=== PATIENT | female | born 1945 | race Caucasian/White ===

== ENCOUNTER → 2016-11-25 | Outpatient (CLI) | payer OTHER ==
[~2016-11-25] MED LIST: CHOL100027 PO; DORZ1SOL6 OP; FLAXSEED OIL; MULT-506 PO; OMEG10007 PO; RED YEAST RICE; TRAVATAN Z EYE GTTS OP; [UNRECOGNIZED DRUG - OTHER]
[2016-11-25 13:29] LABS: ALT/SGPT 27 U/L (12-78); AST/SGOT 15 U/L (15-37); BLOOD UREA NITROGEN 22 mg/dl (7-18); BUN/CREATININE RATIO 26.6 (10-20); CALCIUM 8.7 mg/dl (8.5-10.1); CARBON DIOXIDE 26 mmol/L (21-32); CHLORIDE 106 mmol/L (98-107); CREATININE 0.84 mg/dl (0.60-1.20); GLUCOSE 96 mg/dl (70-99); HDL CHOLESTEROL 56 mg/dl; POTASSIUM 4.3 mmol/L (3.5-5.1); SODIUM 140 mmol/L (136-145)
[2016-11-25 13:41] LABS: ALKALINE PHOSPHATASE 68 U/L (45-117); CHOLESTEROL 307 mg/dl (0-200); CHOLESTEROL/HDL RATIO 5.5; LDL CHOLESTEROL CALCULATED 192 mg/dl; TRIGLYCERIDES 297 mg/dl (0-150); VERY LOW DENSITY LIPOPROT CALC 59 mg/dl
== END | disposition home or self-care (01) ==
LOC: C.LABBC 10:02
PROVIDERS: ATTEND Internal Medicine
DX: I10 Essential (primary) hypertension (principal)

== ENCOUNTER → 2016-12-03 | Outpatient (CLI) | payer OTHER ==
[2016-12-03 13:56] LABS: CHOLESTEROL/HDL RATIO 5.4
== END | disposition home or self-care (01) ==
LOC: C.LABBC 11:14
PROVIDERS: ATTEND Internal Medicine
DX: E78.5 Hyperlipidemia, unspecified (principal)

== ENCOUNTER → 2017-04-16 | Outpatient (CLI) | payer OTHER ==
[2017-04-16 11:02] LABS: ALT/SGPT 24 U/L (12-78); AST/SGOT 14 U/L (15-37); BLOOD UREA NITROGEN 14 mg/dl (7-18); BUN/CREATININE RATIO 18.7 (10-20); CARBON DIOXIDE 23 mmol/L (21-32); CHLORIDE 111 mmol/L (98-107); CHOLESTEROL 232 mg/dl (0-200); CHOLESTEROL/HDL RATIO 5.4; CREATININE 0.77 mg/dl (0.60-1.20); GLUCOSE 95 mg/dl (70-99); HDL CHOLESTEROL 43 mg/dl; LDL CHOLESTEROL CALCULATED 144 mg/dl; SODIUM 142 mmol/L (136-145); TRIGLYCERIDES 225 mg/dl (0-150); VERY LOW DENSITY LIPOPROT CALC 45 mg/dl
[2017-04-16 11:04] LABS: ALB/GLOB RATIO 0.9 (0.9-2); ALKALINE PHOSPHATASE 58 U/L (45-117)
[2017-04-16 12:17] LABS: CALCIUM 8.8 mg/dl (8.5-10.1)
== END | disposition home or self-care (01) ==
LOC: C.LABBC 08:48
PROVIDERS: ATTEND Physician Assistant Medical
DX: E78.5 Hyperlipidemia, unspecified (principal)

== ENCOUNTER → 2017-04-21 | Outpatient (CLI) | payer OTHER ==
--- NOTE | 2017-04-21 14:10 | DIAGNOSTIC IMAGING REPORT ---
CT SCAN OF THE ABDOMEN AND PELVIS WITHOUT IV CONTRAST CLINICAL HISTORY: Right upper quadrant abdominal pain. Bloating. COMPARISON STUDY: Abdominal CT dated 02/15/2006. TECHNIQUE: CT scan of the abdomen and pelvis is performed from the lung bases to the proximal femora. Images are reviewed in the axial, sagittal, and coronal planes. IV contrast was not administered for this examination as per the referring clinician. Oral contrast was utilized. Automated dose control exposure was utilized. CT DOSE: 399.61 mGy.cm FINDINGS: Lung bases: The heart is normal in size and without pericardial effusion. A 5 mm left lower lobe pulmonary nodule on image #10 is new from 2005. The lung bases are otherwise clear. There is a tiny hiatal hernia. Liver: The unenhanced liver is normal in size, contour, and attenuation. There is no intrahepatic biliary ductal dilatation. Gallbladder: Unremarkable. Spleen: Normal in size and attenuation. Pancreas: Unremarkable. Adrenal glands: Unremarkable. Kidneys: The unenhanced kidneys demonstrate cortical atrophy and are without hydronephrosis. There are no renal calculi identified. There is no evidence of contour deforming renal mass lesion. Abdominal vasculature: The abdominal aorta is normal in course and caliber noting mild atherosclerotic calcification. Bowel: The small bowel and colon are normal in course and caliber. There is advanced diverticulosis of the left colon without CT evidence of acute diverticulitis. The appendix is well-visualized and normal. Peritoneum: There is no intraperitoneal free air or abdominal ascites. Lymphadenopathy: None. Pelvic viscera: The bladder is normal as visualized. The uterus is surgically absent. No adnexal lesion is seen. Skeletal structures: The skeletal structures are osteopenic. Lumbosacral spondylosis is observed. There is evidence of L5-S1 spinal fusion. No lytic or blastic lesions are seen. IMPRESSION: 1. There are no acute infectious or inflammatory findings in the abdomen or pelvis. 2. Advanced diverticulosis of the left colon without CT evidence of acute diverticulitis. 3. There is a 5 mm left lower lobe pulmonary nodule. This is pathologically indeterminant but new from 02/15/2006. Follow-up with a nonemergent chest CT is recommended for full assessment of the thorax. 4. Additional findings as above. Electronically signed by: Ethan Foster M.D. 04/21/2017 2:08 PM Dictated Date/Time: 04/21/2017 2:03 PM
== END | disposition home or self-care (01) ==
LOC: C.CTS 11:52
PROVIDERS: ATTEND Internal Medicine
DX: R10.11 Right upper quadrant pain (principal); K57.30 Diverticulosis of large intestine without perforation or abscess without bleeding; R91.1 Solitary pulmonary nodule

== ENCOUNTER → 2017-04-26 | Outpatient (CLI) | payer OTHER ==
--- NOTE | 2017-04-26 14:50 | DIAGNOSTIC IMAGING REPORT ---
CT SCAN OF THE CHEST WITHOUT IV CONTRAST CLINICAL HISTORY: Pulmonary nodule. COMPARISON STUDY: Chest x-ray dated 07/09/2015. Abdominal CT scans dated 04/21/2017 and 02/15/2006. TECHNIQUE: CT scan of the thorax was performed from the thoracic inlet to the upper abdomen. Images are reviewed in the axial, sagittal, and coronal planes. IV contrast was not administered for this examination. CT DOSE: 282.25 mGycm FINDINGS: Thyroid: Imaged portions of the thyroid gland are normal in size and attenuation. Thoracic aorta: There is mild atherosclerotic calcification of the thoracic aorta, which is normal in caliber and demonstrates standard 3-vessel arch anatomy. Heart: The heart is normal in size and without pericardial effusion. There are coronary artery calcifications. The pulmonary trunk is normal in caliber. Lungs and pleural spaces: There is no airspace consolidation or pleural effusion. Biapical scarring is observed. The trachea and central airways are clear. There are 2 pleural-based nodules in the left lower lobe. A 6 cm nodule is seen on image #176 and a 5 mm nodule is seen on image #227. There is a 3 L pleural-based nodule in the right lower lobe seen on image #138. Mediastinum: There is no mediastinal lymphadenopathy. Roma: Not well assessed without IV contrast. Axillae: There is no axillary lymphadenopathy. Upper abdomen: Partially visualized upper abdominal viscera is within normal limits. Skeletal structures: The skeletal structures are osteopenic. No lytic or blastic bony lesions are seen. IMPRESSION: 1. There is no airspace consolidation or pleural effusion. 2. There are 3 pleural-based nodules identified measuring up to 6 mm. These are pathologically indeterminant and follow-up is recommended seen. See below. 3. No mediastinal lymphadenopathy is seen. Please refer to below summary of Fleischner criteria recommendations for follow-up of incidental CT nodules (Tricia Bellamy, Guidelines for management of small pulmonary nodules detected on CT scans: A statement from the Fleischner Society, Radiology 237: [phone].) SOLID NODULES Solitary nodule size: <6 mm * low risk patients: no follow-up needed * high risk patients: optional CT at 12 months Solitary nodule size: 6-8 mm * low risk patients: follow-up at 6-12 months, then consider further follow-up at 18-24 months * high risk patients: initial follow-up CT at 6-12 months and then at 18-24 months if no change Solitary nodule size: >8 mm * either low or high risk patients - consider follow-up CT at 3 months, and/or CT-PET, and/or biopsy Multiple nodules size: <6 mm * low risk patients: no routine follow-up * high risk patients: optional CT at 12 months Multiple nodules size: 6-8 mm * low risk patients: follow-up at 3-6 months, then consider further follow-up at 18-24 months * high risk patients: follow-up at 3-6 months, then at 18-24 months if no change Multiple nodules size: >8 mm * low risk patients: follow-up at 3-6 months, then consider further follow-up at 18-24 months * high risk patients: follow-up at 3-6 months, then at 18-24 months if no change Note: newly detected indeterminate nodule in persons 35 years of age or older. * low risk patients: minimal or absent history of smoking and/or other known risk factors * high risk patients: history of smoking or of other known risk factors (e.g. first degree relative with lung cancer, or exposure to asbestos, radon, uranium) * if a nodule up to 8 mm is partly solid or is ground glass further follow-up is required after 24 months to exclude possible slow growing adenocarcinoma (GRETEL) SUBSOLID NODULES Solitary pure ground-glass nodule * nodule size <6 mm - no CT follow-up required * nodule size >=6 mm - follow-up CT at 6-12 months, then every 2 years until 5 years Solitary part-solid nodule * nodule size <6 mm - no CT follow-up required * nodule size >=6 mm - follow-up CT at 3-6 months. If unchanged, and solid component remains <6 mm, then annual follow-up for 5 years Multiple subsolid nodules * nodule size <6 mm - follow-up CT at 3-6 months, consider further follow-up at 2 and 4 years if stable * nodule size >=6 mm - follow-up CT at 3-6 months, subsequent management based on the most suspicious nodule(s) Electronically signed by: Ethan Foster M.D. 04/26/2017 2:48 PM Dictated Date/Time: 04/26/2017 2:37 PM
== END | disposition home or self-care (01) ==
LOC: C.CTS 14:15
PROVIDERS: ATTEND Internal Medicine
DX: R91.1 Solitary pulmonary nodule (principal); I70.0 Atherosclerosis of aorta

== ENCOUNTER → 2017-05-31 | Outpatient (CLI) | payer OTHER | END | disposition home or self-care (01) | LOC: C.PAPS 14:51 | PROVIDERS: ATTEND Obstetrics & Gynecology | DX: Z01.419 Encounter for gynecological examination (general) (routine) without abnormal findings (principal) ==

== ENCOUNTER → 2017-06-24 | Outpatient (CLI) | payer OTHER ==
--- NOTE | 2017-06-24 13:58 | MAMMOGRAPHY REPORT ---
BILATERAL DIGITAL SCREENING MAMMOGRAM WITH CAD: 06/24/2017 CLINICAL HISTORY: Routine screening. Patient has no complaints. TECHNIQUE: Current study was also evaluated with a Computer Aided Detection (CAD) system. Bilateral CC and MLO views were obtained. COMPARISON: Comparison is made to exams dated: 06/23/2016 mammogram, 06/21/2015 mammogram, 06/20/2014 m ammogram, 06/19/2013 mammogram, 06/17/2012 mammogram, and 06/16/2011 mammogram - [facility] enter. BREAST COMPOSITION: The tissue of both breasts is almost entirely fatty. FINDINGS: No suspicious masses, calcifications, or areas of architectural distortion are noted in ei ther breast. There has been no significant interval change compared to prior exams. Scattered bilater al benign-appearing calcifications are not significantly changed. Benign-appearing mass in the left 3:00 breast is stable dating back to the 2007 exam. IMPRESSION: ACR BI-RADS CATEGORY 2: BENIGN There is no mammographic evidence of malignancy. A 1 year screening mammogram is recommended. The pa tient will receive written notification of the results. Approximately 10% of breast cancers are not detected with mammography. A negative mammographic report should not delay biopsy if a clinically suggestive mass is present. Chanelle Casey M.D. ah/:06/24/2017 12:34:00 Investment Banking Manager: Camila SORIA(Earline)(M), [facility] letter sent: Normal 1/2 BI-RADS Code: ACR BI-RADS Category 2: Benign
== END | disposition home or self-care (01) ==
LOC: C.MAMM 10:53
PROVIDERS: ATTEND Internal Medicine
DX: Z12.31 Encounter for screening mammogram for malignant neoplasm of breast (principal)

== ENCOUNTER → 2017-07-29 | Outpatient (CLI) | payer OTHER ==
--- NOTE | 2017-07-29 10:02 | DIAGNOSTIC IMAGING REPORT ---
(CHEST) THORAX WITHOUT CLINICAL HISTORY: 71 years-old Female presenting with R91.8, lung nodules. TECHNIQUE: Multidetector CT imaging of the chest was performed without the use of intravenous contrast. IV contrast: None. A dose lowering technique was used consistent with the principles of ALARA (as low as reasonably achievable). COMPARISON: 04/26/2017. CT DOSE (mGy.cm): The estimated cumulative dose is 228.11 mGycm. FINDINGS: Resident Care Coordinator topogram: Unremarkable. On soft tissue windows, normal thyroid and thoracic inlet. No axillary, supraclavicular, hilar, or mediastinal lymphadenopathy. Atherosclerosis of aortic arch. Normal heart size. Coronary artery calcification. No pericardial or pleural effusion. Upper abdomen normal. On lung windows, no interval growth of the 2 solid subpleural nodules in the left lower lobe, which measure 4 mm (series 4 images 167 and 226). Subpleural solid nodule in the right lower lobe is triangular in configuration and size measures 3 mm, unchanged (series 4 image 123). Mild mosaic attenuation could suggest small airways disease. Focal linear opacity peripherally in the lingula, likely scarring, unchanged. Minimal scarring also suspected near the anterior left lower lobe. Biapical scarring again noted. No new nodule or infiltrate. Airways patent. On bone windows, normal osseous structures. IMPRESSION: 1. No interval growth of the multiple solid pulmonary nodules, measuring up to 4 mm. Follow-up per [place]isa Society 2017 recommendations below. 2. No acute intrathoracic pathology. Please refer to below summary of Fleischner Society 2017 recommendations for follow-up of incidental CT nodules (H Mia et al. Guidelines for management of incidental pulmonary nodules detected on CT images: From the Fleischner Society 2017. Radiology 2017; 284: 228-243.) SOLID NODULES Single nodule; size < 6 mm * Low risk patients: No routine follow-up * High risk patients: Optional CT at 12 months Single nodule; size 6-8 mm * Low risk patients: CT at 6-12 months, then consider CT at 18-24 months * High risk patients: CT at 6-12 months, then at 18-24 months Single nodule; size > 8 mm * Either low or high risk patients: Considered CT at 3 months, PET/CT, or tissue sampling Multiple nodules; size < 6 mm * Low risk patients: No routine follow up * High risk patients: Optional CT at 12 months Multiple nodules; size 6-8 mm * Low risk patients: CT at 3-6 months, then consider CT at 18-24 months * High risk patients: CT at 3-6 months, then at 18-24 months Multiple nodules; size > 8 mm * Low risk patients: CT at 3-6 months, then consider at 18-24 months * High risk patients: CT at 3-6 months, then at 18-24 months Note: These guidelines apply to incidental nodules. These guidelines do not apply to patients younger than 35 years, immunocompromised patients, or patients with cancer. * Low risk patients: Minimal or absent history of smoking and/or other known risk factors * High risk patients: History of smoking, exposure to other carcinogens, emphysema, fibrosis, upper lobe location, family history of lung cancer, etc. * If a nodule up to 8 mm is partly solid or is ground glass, further follow-up is required after 24 months to exclude possible slow growing adenocarcinoma. SUBSOLID NODULES Single ground-glass nodule * Nodule size < 6 mm: No routine follow-up * Nodule size > or = 6 mm: CT at 6-12 months to confirm persistence, then CT every 2 years until 5 years Single part-solid nodule * Nodule size < 6 mm: No routine follow-up * Nodules size > or = 6 mm: CT at 3-6 months to confirm persistence. If unchanged and solid component remains < 6 mm, annual CT should be performed for 5 years Multiple nodules * Nodule size < 6 mm: CT at 3-6 months. If stable, consider CT at 2 and 4 years. * Nodules size > or = 6 mm: CT at 3-6 months. Subsequent management based on the most suspicious nodule(s) Electronically signed by: Jose Mcginnis M.D. 07/29/2017 10:01 AM Dictated Date/Time: 07/29/2017 9:55 AM
== END | disposition home or self-care (01) ==
LOC: C.CTS 09:32
PROVIDERS: ATTEND Internal Medicine
DX: R91.8 Other nonspecific abnormal finding of lung field (principal)

== ENCOUNTER → 2017-12-06 | Outpatient (CLI) | payer OTHER ==
[2017-12-06 14:32] LABS: ALBUMIN 3.3 gm/dl (3.4-5.0); ALT/SGPT 25 U/L (12-78); AST/SGOT 17 U/L (15-37); BLOOD UREA NITROGEN 17 mg/dl (7-18); CALCIUM 8.5 mg/dl (8.5-10.1); CARBON DIOXIDE 24 mmol/L (21-32); CREATININE 0.78 mg/dl (0.60-1.20); GLUCOSE 88 mg/dl (70-99); POTASSIUM 4.2 mmol/L (3.5-5.1); SODIUM 139 mmol/L (136-145)
[2017-12-06 14:34] LABS: ALKALINE PHOSPHATASE 74 U/L (45-117); CHOLESTEROL 222 mg/dl (0-200); LDL CHOLESTEROL CALCULATED 126 mg/dl
== END | disposition home or self-care (01) ==
LOC: C.LABBC 09:51
PROVIDERS: ATTEND Internal Medicine
DX: E78.5 Hyperlipidemia, unspecified (principal)

== ENCOUNTER → 2018-06-06 | Outpatient (CLI) | payer OTHER ==
[2018-06-06 12:53] LABS: BASO % 0.6 %; BASO ABS # 0.04 K/uL (0-0.2); EOS % 2.6 %; EOS ABS # 0.19 K/uL (0-0.5); HEMATOCRIT 40.7 % (37-47); HEMOGLOBIN 14.2 g/dL (12.0-16.0); IG# 0.01 K/uL (0.00-0.02); LYMPH % 38.2 %; LYMPH ABS # 2.75 K/uL (1.2-3.4); MEAN CELL VOLUME 97.4 fL (80-100); MEAN CORPUSCULAR HGB CONC 34.9 g/dl (32-36); MONO % 7.5 %; MONO ABS # 0.54 K/uL (0.11-0.59); NEUT ABS # 3.67 K/uL (1.4-6.5); PLATELET COUNT 268 K/uL (130-400); RED CELL DISTRIBUTION WIDTH SD 46.1 fL (36.4-46.3)
[2018-06-06 13:44] LABS: ALBUMIN 3.6 gm/dl (3.4-5.0); ALKALINE PHOSPHATASE 67 U/L (45-117); ALT/SGPT 28 U/L (12-78); AST/SGOT 15 U/L (15-37); BLOOD UREA NITROGEN 17 mg/dl (7-18); CALCIUM 8.9 mg/dl (8.5-10.1); CARBON DIOXIDE 23 mmol/L (21-32); CHOLESTEROL 265 mg/dl (0-200); CREATININE 0.84 mg/dl (0.60-1.20); GLUCOSE 89 mg/dl (70-99); LDL CHOLESTEROL CALCULATED 149 mg/dl; POTASSIUM 4.1 mmol/L (3.5-5.1); SODIUM 139 mmol/L (136-145); TOTAL PROTEIN 7.3 gm/dl (6.4-8.2)
== END | disposition home or self-care (01) ==
LOC: C.LABBC 09:34
PROVIDERS: ATTEND Internal Medicine
DX: E78.5 Hyperlipidemia, unspecified (principal); K21.9 Gastro-esophageal reflux disease without esophagitis; I10 Essential (primary) hypertension; M99.83 Other biomechanical lesions of lumbar region; G51.4 Facial myokymia

== ENCOUNTER → 2018-06-14 | Outpatient (CLI) | payer OTHER ==
--- NOTE | 2018-06-14 10:22 | DIAGNOSTIC IMAGING REPORT ---
(CHEST) THORAX WITHOUT CLINICAL HISTORY: 72 years-old Female presenting with R91.8 Multiple pulmonary nodules. TECHNIQUE: Multidetector CT imaging of the chest was performed without the use of intravenous contrast. IV contrast: None. A dose lowering technique was used consistent with the principles of ALARA (as low as reasonably achievable). COMPARISON: 07/29/2017. CT DOSE (mGy.cm): The estimated cumulative dose is 352.30 mGycm. FINDINGS: Cigar Packer And Shader topogram: Unremarkable. On soft tissue windows, normal thyroid and thoracic inlet. No axillary, supraclavicular, or mediastinal lymphadenopathy. Evaluation of the jose limited without intravenous contrast. Atherosclerosis of the aorta. Normal heart size. Coronary artery calcification. No pericardial or pleural effusion. Upper abdomen normal. On lung windows, unchanged solid subpleural lower lobe nodules on the right measuring 3 mm (series 4 image 126) and on the left measuring 4 mm and 3 mm (series 4 images 172 and 232, respectively). Solid peripheral 3 mm right middle lobe nodule (series 4 image 198), unchanged. Punctate solid peripheral right lower lobe nodule (series 4 image 190), unchanged. Punctate solid left apical nodule (series 4 image 49), unchanged. Airways patent. No pneumothorax. On bone windows, normal osseous structures. IMPRESSION: 1. Solid pulmonary nodules measuring up to 4 mm, which have been stable dating back to April 2017. No new pulmonary nodule. These do not require further follow-up and are consistent with benign etiology per Adalgisa Society 2017 criteria below. Please refer to below summary of Fleischner Society 2017 recommendations for follow-up of incidental CT nodules (H Mia et al. Guidelines for management of incidental pulmonary nodules detected on CT images: From the Fleischner Society 2017. Radiology 2017; 284: 228-243.) SOLID NODULES Single nodule; size < 6 mm * Low risk patients: No routine follow-up * High risk patients: Optional CT at 12 months Single nodule; size 6-8 mm * Low risk patients: CT at 6-12 months, then consider CT at 18-24 months * High risk patients: CT at 6-12 months, then at 18-24 months Single nodule; size > 8 mm * Either low or high risk patients: Considered CT at 3 months, PET/CT, or tissue sampling Multiple nodules; size < 6 mm * Low risk patients: No routine follow up * High risk patients: Optional CT at 12 months Multiple nodules; size 6-8 mm * Low risk patients: CT at 3-6 months, then consider CT at 18-24 months * High risk patients: CT at 3-6 months, then at 18-24 months Multiple nodules; size > 8 mm * Low risk patients: CT at 3-6 months, then consider at 18-24 months * High risk patients: CT at 3-6 months, then at 18-24 months SUBSOLID NODULES Single ground-glass nodule * Nodule size < 6 mm: No routine follow-up * Nodule size > or = 6 mm: CT at 6-12 months to confirm persistence, then CT every 2 years until 5 years Single part-solid nodule * Nodule size < 6 mm: No routine follow-up * Nodules size > or = 6 mm: CT at 3-6 months to confirm persistence. If unchanged and solid component remains < 6 mm, annual CT should be performed for 5 years Multiple nodules * Nodule size < 6 mm: CT at 3-6 months. If stable, consider CT at 2 and 4 years. * Nodules size > or = 6 mm: CT at 3-6 months. Subsequent management based on the most suspicious nodule(s) NOTE: 1) These guidelines apply to incidental nodules. These guidelines do NOT apply to patients younger than 35 years, immunocompromised patients, or patients with cancer. 2) Risk categories: * Low risk patients: Minimal or absent history of smoking and/or other known risk factors * High risk patients: History of smoking, exposure to other carcinogens, emphysema, fibrosis, upper lobe location, family history of lung cancer, etc. 3) If a nodule up to 8 mm is partly solid or is ground glass, further follow-up is required after 24 months to exclude possible slow growing adenocarcinoma. Electronically signed by: Jose Mcginnis M.D. 06/14/2018 10:21 AM Dictated Date/Time: 06/14/2018 10:05 AM
== END | disposition home or self-care (01) ==
LOC: C.CTS 09:50
PROVIDERS: ATTEND Internal Medicine
DX: R91.8 Other nonspecific abnormal finding of lung field (principal)

== ENCOUNTER → 2018-06-14 | Outpatient (CLI) | payer OTHER | END | disposition home or self-care (01) | LOC: C.PAPS 15:13 | PROVIDERS: ATTEND Obstetrics & Gynecology | DX: Z01.419 Encounter for gynecological examination (general) (routine) without abnormal findings (principal) ==

== ENCOUNTER 2018-06-25 15:53 | Emergency (ER) | payer OTHER ==
[~2018-06-25] VITALS: Ht 160 cm; Wt 71.7 kg
[2018-06-25 15:56] VITALS: BP 168/70; PULSE 76; TEMP 36.7; O2SAT 96; Ht 160 cm; Wt 71.7 kg
[2018-06-25] MEDS ORDERED: CEPH500C PO (16:33)
--- NOTE | 2018-06-25 17:33 | EMERGENCY ROOM VISIT NOTE ---
History First contact with patient: 16:00 (Syed Hancock,P.A.) First contact with patient: 16:00 (Alex Swann M.D.) Chief Complaint: BITE Stated Complaint: SPIDER BITE ON RIGHT ANKLE History of Present Illness The patient is a 72 year old white female who presents to the Emergency Room with complaints of a possible spider bite on the inside portion of her right ankle. Patient states she was sitting on the deck on Wednesday evening. She denies feeling anything bite her. She developed some itching of the ankle later that evening. She awoke Wednesday with a reddened area and 2 visible puncture tse within the center. There was some itching but no significant pain. She was seen by her PCP who recommended she just observe it. A white central area has developed. She noticed some redness around the initial bite katelin. No fevers or chills. No streaking. He she is not on any antibiotics. She has been keeping it clean with soap and water and keeping it covered. No prior history of similar lesion. Her accompanied her today. No other complaints. (Syed Hancock,P.A.) Review of Systems REVIEW OF SYSTEM: HEENT: No dizziness, visual problems, hearing loss, or tinnitus. There is no difficulty swallowing and no oral lesions are present. PULMONARY: No cough, shortness of breath, sputum production or hemoptysis. CARDIOVASCULAR: No chest pain, palpitations, shortness of breath or peripheral edema. GASTROINTESTINAL: No diarrhea, constipation, nausea, vomiting, or abdominal pain. GENITOURINARY: No dysuria, frequency, urgency or nocturia. NEUROLOGIC: No weakness, muscle tenderness, epilepsy or history of neurological problems. MUSCULOSKELETAL: No history of joint tenderness/swelling. Positive history of arthritis and arthralgias. SKIN: No rashes or lesions. PSYCHIATRIC: No history of depression or mental illness. ENDOCRINE: No history of diabetes, thyroid disorders, or abnormal hair growth. (Syed Hancock,P.A.) Past Medical/Surgical History Medical history: Significant for history of back pain and lung nodules Previous surgeries: Back surgery. (Syed Hancock,P.A.) Family History Noncontributory. Parents are . (Syed Hancock,P.A.) Social History Smoking Status: Never Smoker Smokeless Tobacco Use: No Alcohol Use: occasionally Drug Use: none Marital Status: Housing Status: lives with family Occupation Status: retired (Syed Hancock,P.A.) Current/Historical Medications Scheduled Cephalexin Monohydrate (Keflex), 500 MG PO TID Cholecalciferol (Vitamin D 1000 Unit), 2,000 INTER.UNIT PO DAILY Dorzolamide Hcl-Timolol Maleat (Cosopt Oph), 1 DROP OP QAM Multivitamin (Multivitamin), 1 TAB PO DAILY [Flaxseed Oil], DAILY [Red Yeast Rice], DAILY [Travatan Z Eye Gtts], 1 DROP OP QPM Miscellaneous Medications Fish Oil (Rinard-3), 1 CAP PO [Clamera Patch] Physical Exam Vital Signs Date Time Temp Pulse Resp B/P (MAP) Pulse Ox O2 Delivery O2 Flow Rate FiO2 06/25/18 15:56 36.7 76 18 168/70 96 Room Air (Alex Swann M.D.) Physical Exam General: Well-developed, well-nourished, elderly white female, sitting on a bed. Alert and oriented. No acute distress. Skin: Warm and dry with good turgor. No rashes. No ecchymosis. She has a pustule type lesion present on the inner aspect of the right ankle, just inferior and anterior to the medial malleolus. Reddened areas approximately 1.5 cm in diameter. Central pustule is approximately 6-7 mm in diameter. Mild induration. No streaking. Nothing is expressible. The patient is not diaphoretic. No abrasions. Musculoskeletal: Gross motor function is intact to the right ankle and toes. Neurologic: Gross sensation is intact across the foot and ankle by soft touch. Peripheral pulses are 2+. (Syed Hancock,P.A.) Medical Decision & Procedures Procedure Patient's lesion was cleansed twice with alcohol. An 18-gauge needle was used to unroofed pustule. A small amount of purulent material was removed. No foreign body was noted. Postural does not appear to be deep. (Syed Hancock,P.A.) ED Course Patient and her were educated regarding today's findings discussed. Pustule was ruptured as stated. Cleanse it daily with soap and water. Continue using her triple antibiotic ointment until fully healed. Prescription was provided for Keflex 500 mg 3 times daily 5 days. Apply warm moist compresses to the area to promote drainage and healing. Start ibuprofen 200 mg every 6-8 hours until inflammation resolves. Follow-up with her PCP or return to the ED for any acute worsening of symptoms. (Syed Hancock,P.A.) Medical Decision Possibility of insect bite, spider bite, retained foreign body, and skin abscess were considered among others. (Syed Hancock,P.A.) [place] Drug Monitoring Program Search Results: no issues identified (Syed Hancock,P.A.) Medication Reconcilliation Current Medication List: was personally reviewed by me (Syed Hancock,P.A.) Blood Pressure Screening Blood pressure disposition: Elevated BP felt to be situational (Syed Hancock,P.A.) Impression Primary Impression: Insect bite of ankle, right Departure Information Dispostion Home / Self-Care Prescriptions Cephalexin Monohydrate (Keflex) 500 Mg Cap 500 MG PO TID, #15 CAP Prov: Syed Hancock,P.A. 06/25/18 Forms HOME CARE DOCUMENTATION FORM, IMPORTANT VISIT INFORMATION Patient Instructions My [facility] Additional Instructions Keep the area clean with soap and water Cover daily with a thin coat of antibiotic ointment and a Band-Aid Keflex 1 pill 3 times a day 5 days Ibuprofen 200 mg every 6-8 hours until inflammation resolves Elevate the foot to reduce any swelling Return to the ED or see your PCP for any increasing redness or streaking Problem Qualifiers Primary Impression: Insect bite of ankle, right Encounter type: initial encounter Qualified Codes: S90.561A - Insect bite ( nonvenomous), right ankle, initial encounter; W57.XXXA - Bitten or stung by nonvenomous insect and other nonvenomous arthropods, initial encounter
== END 2018-06-25 16:42 | disposition home or self-care (01) ==
LOC: C.EDB 15:54 → C.EDD 16:42
DX: S90.561A Insect bite (nonvenomous), right ankle, initial encounter (principal); W57.XXXA Bitten or stung by nonvenomous insect and other nonvenomous arthropods, initial encounter

== ENCOUNTER 2021-05-12 08:10 | Inpatient (IN) ==
--- NOTE | 2021-04-24 10:24 | PAT Medication Instructions ---
Medication Instructions Date of Service April 24, 2021 Home Medications cholecalciferol (vitamin D3) 50 mcg (2,000 unit) capsule 2,000 units PO BID cranberry extract 500 mg tablet 500 mg PO QAM estradiol 0.05 mg/24 hr weekly transdermal patch 1 patch TD WEEKLY omega-3 fatty acids 1,200 mg PO QAM spironolactone 25 mg-hydrochlorothiazide 25 mg tablet 1 tab PO DAILY PRN coenzyme Q10 [CoQ-10] 100 mg PO HS flaxseed oil 1,000 mg PO HS lorazepam 0.5 mg PO DAILY PRN omeprazole 40 mg PO QAM polyethylene glycol 3350 [Miralax] 17 g PO HS ramipril 10 mg PO QAM vitamin E 1 dose PO HS Continue as directed estradiol 0.05 mg/24 hr weekly transdermal patch 1 patch TD WEEKLY (continue as normal unless told otherwise by surgeon. Avoid placement near surgery site prior to surgery) STOP taking 2 weeks before surgery (or as soon as possible if surgery is within 2 weeks) cranberry extract 500 mg tablet 500 mg PO QAM omega-3 fatty acids 1,200 mg PO QAM coenzyme Q10 [CoQ-10] 100 mg PO HS flaxseed oil 1,000 mg PO HS vitamin E 1 dose PO HS DO NOT take the morning of surgery cholecalciferol (vitamin D3) 50 mcg (2,000 unit) capsule 2,000 units PO BID spironolactone 25 mg-hydrochlorothiazide 25 mg tablet 1 tab PO DAILY PRN ramipril 10 mg PO QAM Take morning of surgery With a small sip of water, OTHERWISE NOTHING TO EAT OR DRINK AFTER MIDNIGHT: lorazepam 0.5 mg PO DAILY PRN (if needed) omeprazole 40 mg PO QAM Take evening before surgery cholecalciferol (vitamin D3) 50 mcg (2,000 unit) capsule 2,000 units PO BID spironolactone 25 mg-hydrochlorothiazide 25 mg tablet 1 tab PO DAILY PRN (if needed) lorazepam 0.5 mg PO DAILY PRN (if needed) polyethylene glycol 3350 [Miralax] 17 g PO HS Other Notes If you have any questions please call us at [phone] or [phone] or [phone] or [phone]
--- NOTE | 2021-04-28 11:01 | Anesthesiology Consultation ---
Date of Service April 28, 2021 Assessment & Plan (1) Encounter for pre-operative examination: COVID screening: Per assessment on 04/28: Travel screen negative, no known COVID- 19 positive contacts or current COVID-19 related symptoms. Surgeon arranging preop COVID testing. Awaiting results. Chart Review Chart Review: Acceptable Risk for Surgery (pending surgeon-ordered PCP clearance) and Patient seen in Pre Admission Testing Teaching & Discussion Pre-Anesthesia Teaching/Discussion Notes: Instructed NPO after midnight before surgery,except medications with 15 cc of water. Medication instructions provided according to the PAT guidelines. History Surgery Operation Date: 05/12/21 07:45 Proposed Procedures p L3-L5 Decompression/Fusion Spinal Cord Monitoring - Kevin Cardona DO s L5-S1 Hardware Removal - Kevin Cardona DO Height/Weight Height: 5 ft 3.5 in Weight: 65.3 kg Allergies Allergy/AdvReac Type Severity Reaction Status Date / Time adhesive Allergy Intermediate Redness Verified 04/28/21 11:14 niacin Allergy Intermediate Redness Verified 04/28/21 11:14 doxycycline Allergy Rash Verified 04/22/21 16:33 red yeast rice Allergy Unknown Verified 04/22/21 16:53 ezetimibe [From Zetia] AdvReac Intermediate Muscle Pain Verified 04/28/21 11:14 fenofibrate [From Tricor] AdvReac Unknown Muscle Pain Verified 04/28/21 11:14 atorvastatin AdvReac Muscle Pain Verified 04/28/21 11:14 choline fenofibrate AdvReac Muscle Pain Verified 04/28/21 11:14 [From Trilipix] gemfibrozil [From Lopid] AdvReac Muscle Pain Verified 04/28/21 11:14 pitavastatin [From Livalo] AdvReac Muscle Pain Verified 04/28/21 11:14 pravastatin [From Pravachol] AdvReac Muscle Pain Verified 04/28/21 11:14 rosuvastatin [From Crestor] AdvReac Muscle Pain Verified 04/28/21 11:14 simvastatin AdvReac Muscle Pain Verified 04/28/21 11:14 Medications Home Medications Medication Instructions Recorded Confirmed Last Taken cholecalciferol (vitamin D3) 50 2,000 units PO BID cap 06/01/19 04/22/21 Unknown mcg (2,000 unit) capsule cranberry extract 500 mg tablet 500 mg PO QAM tab 06/01/19 04/22/21 Unknown estradiol 0.05 mg/24 hr weekly 1 patch TD WEEKLY ea 06/01/19 04/22/21 Unknown transdermal patch omega-3 fatty acids 1,200 mg PO QAM cap 06/01/19 04/22/21 Unknown spironolactone 25 1 tab PO DAILY PRN tab 06/09/19 04/22/21 Unknown mg-hydrochlorothiazide 25 mg tablet coenzyme Q10 [CoQ-10] 100 mg PO HS 04/22/21 04/22/21 Unknown flaxseed oil 1,000 mg PO HS 04/22/21 04/22/21 Unknown lorazepam 0.5 mg PO DAILY PRN 04/22/21 04/22/21 Unknown omeprazole 40 mg PO QAM 04/22/21 04/22/21 Unknown polyethylene glycol 3350 [Miralax] 17 g PO HS 04/22/21 04/22/21 Unknown ramipril 10 mg PO QAM 04/22/21 04/22/21 Unknown vitamin E 1 dose PO HS 04/22/21 04/22/21 Unknown Past Medical History Medical History Diverticular disease GERD (gastroesophageal reflux disease) controlled Hearing deficit B/L PATHAK HLD (hyperlipidemia) HTN (hypertension) IBS (irritable bowel syndrome) Osteoarthritis Exercise / Class Metabolic Activity II 4-5 Yardwork/Stairs/Walk up hill Past Family History Family History Father Acute myocardial infarction Mother Coronary heart disease Sister Diabetes Coronary heart disease Hyperlipidemia Hypertension Unknown Diabetes Hypertension Other No family history of adverse response to anesthesia Denies family history of Ovarian cancer Prostate cancer Myocardial infarction Breast cancer Colorectal cancer Past Surgical History Surgical History History of back surgery History of breast surgery History of cataract surgery History of colonoscopy History of dilation of urethra History of non-cataract eye surgery History of total abdominal hysterectomy and bilateral salpingo-oophorectomy Past Anesthesia History No Hx of Anesthesia Complications and No Family Hx of Anesthesia Complications History of PONV No Hx of PONV and Hx of Motion Sickness (+ boats) Social History Smoking Status: Current every day smoker tobacco type: cigarettes Smoking cigarettes per day: 10 cigarettes (tobacco use x 40 years) Do You Dip or Chew Tobacco: No Hx Alcohol Use: Yes Alcohol type: hard liquor alcohol intake frequency: a few times a week Hx Substance Use: No substance use type: does not use Review of Systems Patient denies chest pain, shortness of breath, dyspnea on exertion, fever, chills, cough, wheezing, palpitations. Physical Exam Vital Signs VITALS BP 107/67 P 60 TEMP 98.4 SP02 97%RA RESP 16 PHYSICAL Full cervical extension range of motion. Full TMJ range of motion. TMD 3 finger breaths Mallampati Score 2 Dentition: intact, + crowns Lungs: clear throughout to auscultation Cardiac: regular rate and rhythm, no murmurs noted Spine: normal Carotid arteries: negative bruit Extremities: no edema Lab Results Anesthesia Preop Results Results Anesthesia Widget: WBC 6.54 K/uL (4.8-10.8) 04/28/21 Hgb 13.2 g/dL (12.0-16.0) 04/28/21 Hct 38.9 % (37-47) 04/28/21 Plt 303 K/uL (130-400) 04/28/21 Na 139 mmol/L (136-145) 04/28/21 K 4.4 mmol/L (3.5-5.1) 04/28/21 Cl 106 mmol/L (98-107) 04/28/21 CO2 29 mmol/L (21-32) 04/28/21 BUN 14 mg/dl (7-18) 04/28/21 Creat 0.77 mg/dl (0.6-1.2) 04/28/21 Glucose Level 84 mg/dl (70-99) 04/28/21 PT 9.7 Seconds (9.0-12.0) 04/28/21 PTT 24.7 Seconds (21.0-31.0) 04/28/21 INR 1.0 (0.9-1.1) 04/28/21 Urine Color Yellow 04/28/21 Urine Appearance Clear (Clear) 04/28/21 Urine pH 7.0 (4.5-7.5) 04/28/21 Urine Specific [place] 1.006 (1.000-1.030) 04/28/21 Urine Protein Negative (Negative) 04/28/21 Urine Glucose (UA) Negative (Negative) 04/28/21 Urine Ketones Negative (Negative) 04/28/21 Urine Blood Negative (Negative) 04/28/21 Urine Nitrite Negative (Negative) 04/28/21 Urine Bilirubin Negative (Negative) 04/28/21 Urine Urobilinogen Negative (Negative) 04/28/21 Urine Leukocyte Esterase Negative (Negative) 04/28/21 Blood Type B Positive 04/28/21 Antibody Screen NEGATIVE 04/28/21 Testing Electrocardiogram Date: 04/28/21 SB at 58bpm. unconfirmed report. Chest X-Ray Date: 04/28/21 FINDINGS: The heart is normal in size. There is no failure. There is no focal pulmonary consolidation. There are no pleural effusions. There is a chronic right apical opacity likely related to the right anterior first rib. There is a stable curvilinear opacity at the right cardiophrenic angle likely representing a vessel. IMPRESSION: No active disease in the chest. Echocardiogram Date: 12/05/15 EF 55 to 60%. No regional wall motion abnormalities. Mild MR. RVSP 19 mmHg. Stress Test Date: 11/21/19 Type: exercise Negative exercise stress echo/ECG for ischemia at 88% MPHR. No exercise-induced chest pain. 80% max predicted heart rate. 7.8 METS. Mild MR. Mild aortic sclerosis. Trace to mild AI. Mild TR.
[~2021-05-12 08:10] MED LIST changes: +ACETAMINOPHEN 500 MG TAB PO SCH; -CHOL100027 PO; +CLINDAMYCIN 600 MG/54 ML BAG IV SCH; +CeleBREX 200 MG CAP PO SCH; -DORZ1SOL6 OP; -FLAXSEED OIL; +GABAPENTIN 300 MG CAP PO SCH; +LR 15ML/HR IV SCH; -MULT-506 PO; -OMEG10007 PO; -RED YEAST RICE; -TRAVATAN Z EYE GTTS OP; -[UNRECOGNIZED DRUG - OTHER]; +ceFAZolin 1000MG 1,000 MG/7.5 ML SYR IV SCH
[2021-05-12] MEDS ORDERED: PROMETHAZINE HCL 6.25 MG in SODIUM CHLORIDE 0.9% 50 ML IV PRN (08:36)
[2021-05-12] MEDS ORDERED: LABETALOL HCL IV 5 MG/ML 20ML IV PRN (08:36)
[2021-05-12] MEDS ORDERED: ONDANSETRON INJ 2 MG/ML 2 ML VIAL IV PRN ×2 (08:36→13:22)
[2021-05-12] MEDS ORDERED: HYDROmorphone INJ 1 MG/ML SYRINGE IV PRN ×2 (08:36→13:22)
[2021-05-12] MEDS ORDERED: ATROPINE SULFATE 0.1 MG/ML 10ML SYR IV PRN (08:36)
[2021-05-12] MEDS ORDERED: fentaNYL citrate 100 MCG/2 ML VIAL ONE (08:54)
[2021-05-12] MEDS ORDERED: MIDAZOLAM HCL 1 MG/ML 2ML VIAL ONE (08:54)
[2021-05-12] MEDS ORDERED: HYDROmorphone INJ 2 MG/ML SYR/VIAL ONE (08:55)
--- NOTE | 2021-05-12 09:00 | History & Physical Bridge Note ---
Date of Service May 12, 2021 History & Physical Bridge Note I have examined the patient, reviewed the History & Physical and in the interval since the performance of the History & Physical I have noted the following changes of clinical significance: no changes noted
--- NOTE | 2021-05-12 09:02 | History & Physical Report ---
Date of Service May 12, 2021 Assessment & Plan (1) Neurogenic claudication due to lumbar spinal stenosis: Admission and Anticipated Discharge Date Admission Date: L3-L5 decompression fusion, L5-S1 hardware removal History of Present Illness Chief Complaint: Back and leg pain Primary Care Provider: Jose Spivey MD This is a 75-year-old female well-known to me the presents with chronic system back and leg pain. Failing course of nonoperative care is here for surgical invention. Allergies Allergy/AdvReac Type Severity Reaction Status Date / Time adhesive Allergy Intermediate Redness Verified 05/12/21 08:40 niacin Allergy Intermediate Redness Verified 05/12/21 08:40 doxycycline Allergy Rash Verified 05/12/21 08:40 red yeast rice Allergy Unknown Verified 05/12/21 08:40 ezetimibe [From Zetia] AdvReac Intermediate Muscle Pain Verified 05/12/21 08:40 fenofibrate [From Tricor] AdvReac Unknown Muscle Pain Verified 05/12/21 08:40 atorvastatin AdvReac Muscle Pain Verified 05/12/21 08:40 choline fenofibrate AdvReac Muscle Pain Verified 05/12/21 08:40 [From Trilipix] gemfibrozil [From Lopid] AdvReac Muscle Pain Verified 05/12/21 08:40 pitavastatin [From Livalo] AdvReac Muscle Pain Verified 05/12/21 08:40 pravastatin [From Pravachol] AdvReac Muscle Pain Verified 05/12/21 08:40 rosuvastatin [From Crestor] AdvReac Muscle Pain Verified 05/12/21 08:40 simvastatin AdvReac Muscle Pain Verified 05/12/21 08:40 Home Medications Medication Instructions Recorded Confirmed Type cholecalciferol (vitamin D3) 50 2,000 units PO BID cap 06/01/19 05/12/21 History mcg (2,000 unit) capsule cranberry extract 500 mg tablet 500 mg PO QAM tab 06/01/19 05/12/21 History estradiol 0.05 mg/24 hr weekly 1 patch TD WEEKLY ea 06/01/19 05/12/21 History transdermal patch omega-3 fatty acids 1,200 mg PO QAM cap 06/01/19 05/12/21 History spironolactone 25 1 tab PO DAILY PRN tab 06/09/19 05/12/21 History mg-hydrochlorothiazide 25 mg tablet coenzyme Q10 [CoQ-10] 100 mg PO HS 04/22/21 05/12/21 History flaxseed oil 1,000 mg PO HS 04/22/21 05/12/21 History lorazepam 0.5 mg PO DAILY PRN 04/22/21 05/12/21 History omeprazole 40 mg PO QAM 04/22/21 05/12/21 History polyethylene glycol 3350 [Miralax] 17 g PO HS 04/22/21 05/12/21 History ramipril 10 mg PO QAM 04/22/21 05/12/21 History vitamin E 1 dose PO HS 04/22/21 05/12/21 History Past Med/Surg History Medical History Diverticular disease GERD (gastroesophageal reflux disease) controlled Hearing deficit B/L PATHAK HLD (hyperlipidemia) HTN (hypertension) IBS (irritable bowel syndrome) Osteoarthritis Surgical History History of back surgery History of breast surgery History of cataract surgery History of colonoscopy History of dilation of urethra History of non-cataract eye surgery History of total abdominal hysterectomy and bilateral salpingo-oophorectomy Family History Father Acute myocardial infarction Mother Coronary heart disease Sister Diabetes Coronary heart disease Hyperlipidemia Hypertension Unknown Diabetes Hypertension Other No family history of adverse response to anesthesia Denies family history of Ovarian cancer Prostate cancer Myocardial infarction Breast cancer Colorectal cancer Social History Smoking Status: Current every day smoker Tobacco Type: Cigarettes Cigarettes Per Day: 10 cigarettes (tobacco use x 40 years); Second Hand Exposure: Yes ( smokes); Do You Dip or Chew Tobacco: No; Tobacco Cessation Education Requested by Patient: No Hx Alcohol Use: Yes Alcohol type: hard liquor Alcohol Intake Frequency: Monthly or Less Alcohol Intake Frequency Comment: social drinks Hx Substance Use: No Preferred Language: Icelandic Communication Ability: Effective Visual Impairment: Limited Hearing Ability: Use of Hearing Aid Oven Press Tender Required: No Beliefs That Will Affect Care: None marital status: Current Living Situation: Spouse current occupational status: retired How many Children do You have: 1 How many Children do You have Comment: adopted Feels Safe at Home: Yes Safety Concerns: Feels Safe At This Time Childhood Exposure to Second-Hand Smoke: No caffeine: Yes (drinks soda ) Dental Care, Regularly: Yes Physical Activity Frequency: Daily Physical Activity Frequency Comment: walks her dog daily Seatbelt Use: always Sunscreen Use: Yes Assistive Devices: Hearing Aid - Bilateral Physical Exam Physical Exam: Patient is alert and oriented Heart regular in rhythm Lungs clear to auscultation Results & Data ([facility]) Vital Signs (Past 12 Hours) Vital Signs Temp Pulse Resp BP Pulse Ox 05/12/21 08:31 36.6 C 62 20 157/69 H 98
[2021-05-12] MEDS ORDERED: BUPIVACAINE/EPINEPHRINE 0.5% MPF 1:200,000 30 ML VIAL ONE (09:19)
[2021-05-12] MEDS ORDERED: PROPOFOL IV EMULSION 10 MG/ML 20 ML VIAL IV ONE (09:25)
[2021-05-12] MEDS ORDERED: LIDOCAINE 2% 2 ML VIAL/AMP(20MG/ML) INFIL ONE (09:25)
[2021-05-12] MEDS ORDERED: GLYCOPYRROLATE 0.2 MG/ML VIAL ONE (09:25)
[2021-05-12] MEDS ORDERED: NEOSTIGMINE METHYLSULFATE 1 MG/ML 10ML VIAL ONE (09:25)
[2021-05-12] MEDS ORDERED: DEXAMETHASONE SOD INJ 4 MG/ML VIAL ONE (09:25)
[2021-05-12] MEDS ORDERED: ROCURONIUM BROMIDE 10 MG/ML 5 ML VIAL IV ONE (09:25)
[2021-05-12] MEDS ORDERED: ONDANSETRON INJ 2 MG/ML 2 ML VIAL ONE (09:25)
[2021-05-12] MEDS ORDERED: FLOSEAL HEMOSTATIC MATRIX 10ML TOP ONE (10:24)
--- NOTE | 2021-05-12 11:31 | Operative Report ---
Post Operative Report Pre & Post Diagnosis Operation Date: 05/12/21 09:35 Pre-Op Diagnosis: Lumbar spinal stenosis with neurogenic claudication spondylolisthesis L4-L5 Post-Op Diagnosis: Same I identified the patient and participated in the time-out.: Yes Procedure Operation Date: 05/12/21 09:35 Actual Procedures #1 removal of instrumentation L5-S1. #2 exploration of fusion L5-S1. #3 lumbar decompression with bilateral medial facetectomies and foraminotomies L3-4 and L4-5 per #4 posterior spinal fusion L4-5. #5 placement of posterior instrumentation L4-5. #6 interbody fusion L4-5. #7 placement of peek cage 9 x 22 mm at L4-5 per #8 placement locally harvested morselized autograft in the posterior gutters. 9 placement infuse collagen sponge and master graft in the posterior lateral gutters and I factor in the interbody space. Surgeon Kevin Cardona, Gluer Machine Setup Operator Jann Jefferson Estimated Blood Loss 100 Findings Consistent with Post-Op Diagnosis Specimens None Indications This is a 75-year-old female known to me the presents above-mentioned diagnosis after failing since course of nonoperative care is here for the above-mentioned procedure. Description of Procedure Patient was met with identified informed consent obtained. Patient was then taken to the operative suite underwent a patient placed in a prone position injectable top Maicol frame. All bony prominences well-padded eyes inspected to ensure no external pressure placed upon the. This point lumbar spine was prepped and draped in a sterile fashion. Sharp dissection with the assistance of Bovie cautery from down to and exposing the lamina and transverse processes of L4 and instrumentation at L5 and S1 levels bilaterally. Then proceeded to move the hardware bilaterally explore the fusion mass noting it to be intact. Then performed a complete laminectomy of L4 partial laminectomy L3 including bilateral medial facetectomies and foraminotomies addressing severe spinal stenosis. Pedicle screws were then placed in L4 and L5 bilaterally with assistance of fluoroscopy and by way of a transforaminal portion right complete discectomy was performed endplates curetted to subcortical bleeding bone and a 9 x 22 mm peek cage filled with I factor tapped in position. The rods were then locked in final position bilaterally. The transverse processes of L4 and L5 burred to subcortical bleeding bone. Infuse collagen sponge master graft and local autograft was placed in the posterior gutters. 15 round SUAD drain inserted. The incision was then closed with 1 Vicryl fascia 2-0 Vicryl subcutaneously and 4 Monocryl for final skin closure. Steri-Strip sterile dressings placed. Patient will continue PACU stable condition. Please note spinal cord monitoring was utilized at the procedure no changes noted. Lastly Jann Jefferson was present at the entire procedure about the patient posi tioning complex portions of the surgery and final skin closure. I attest to the content of the Intraoperative Record and any orders documented therein. Any exceptions are noted below.
--- NOTE | 2021-05-12 11:35 | Fluoroscopy Report ---
[place] lumbar spine 2-3V CLINICAL HISTORY: L3-L5 DECOMPRESSION/FUSION COMPARISON STUDY: MRI performed August 2012 FLUOROSCOPY TIME: 18 seconds. NUMBER OF FLUOROSCOPIC IMAGES: 2 FINDINGS: Due to a limited [id number], accurate numbering is not possible. There are postsurgical changes of consecutive level discectomies and interbody fusions. At the more superior level, there is evidence of posterior spinal fusion with pedicle screw fixation. The more superior level there is a grade 1 spondylolisthesis. IMPRESSION: Postsurgical changes as described above. As stated above accurate level numbering is not possible due to the limited [id number]. ACT 112: Negative or not required by law. Electronically signed by: Levi Banks M.D. 05/12/2021 11:34 AM
--- NOTE | 2021-05-12 12:30 | Anesthesiology Progress Note ---
Date of Service May 12, 2021 Anesthesia Post Procedure Vital Signs Vital Signs: Temp Pulse Pulse Resp BP BP Pulse Ox 05/12/21 12:20 54 L 14 119/58 L 94 05/12/21 12:10 64 14 116/95 99 05/12/21 12:00 74 12 127/62 99 05/12/21 11:54 36.1 C L 78 16 132/59 L 99 05/12/21 08:31 36.6 C 62 20 157/69 H 98 Transfer of Care Handoff Completed per policy Notes Mental Status: alert / awake / arousable Patient Amnestic to Procedure: Yes Nausea / Vomiting: adequately controlled Pain: adequately controlled Airway Patency, RR, SpO2: stable & adequate BP & HR: stable & adequate Hydration State: stable & adequate Anesthetic Complications: no major complications apparent
[2021-05-12] MEDS ORDERED: DO NOT ADMINISTER FLU VACCINE PRN (13:22)
[2021-05-12] MEDS ORDERED: MAGNESIUM HYDROXIDE SUSP 30 ML UDC PO PRN (13:22)
[2021-05-12] MEDS ORDERED: ONDANSETRON 4 MG OD TAB PO PRN (13:22)
[2021-05-12] MEDS ORDERED: traMADol HCL 50 MG TABLET PO PRN (13:22)
[2021-05-12] MEDS ORDERED: HYDROCODONE/ACETAMOPHEN 5/325MG TAB PO PRN (13:22)
[2021-05-12] MEDS ORDERED: hydrOXYzine HCl 25 MG TAB PO PRN (13:22)
[2021-05-12] MEDS ORDERED: PROMETHAZINE HCL 12.5 MG in SODIUM CHLORIDE 0.9% 50 ML IV PRN (13:22)
[2021-05-12] MEDS ORDERED: LORazepam 0.5 MG TAB PO PRN (13:22)
[2021-05-12] MEDS ORDERED: DO NOT ADMINISTER PNEUMOCOCCAL VACCINE PRN (13:22)
[2021-05-12] MEDS ORDERED: ALUMINUM/MAGNESIUM SUSP 30 ML UDC PO PRN (13:22)
[2021-05-12] MEDS ORDERED: diphenhydrAMINE Capsule 25 MG CAP PO PRN (13:22)
[2021-05-12] MEDS ORDERED: NALOXONE HCL 0.4 MG/1 ML VIAL/CARP IV PRN (13:22)
[2021-05-12] MEDS ORDERED: LORazepam 0.5 MG/1 ML VIAL IV PRN (13:22)
[2021-05-12] MEDS ORDERED: HYDROmorphone INJ 0.5 MG/0.5 ML SYR IV PRN (13:22)
[2021-05-12] MEDS ORDERED: FAMOTIDINE 20 MG TAB PO PRN (13:22)
[2021-05-12] MEDS ORDERED: METOCLOPRAMIDE HCL INJ 5 MG/ML 2 ML VIAL IV PRN (13:22)
[2021-05-12] MEDS ORDERED: SPIRONOLACTONE/HCTZ 25-25 PO PRN (13:22)
[2021-05-12] MEDS ORDERED: SOD PHOSPHATE/SOD BIPHOSPHATE ENEMA 132 ML BTL PR PRN (13:22)
[2021-05-12] MEDS: LACTATED RINGER'S 1,000 ML IV SCH (14:40)
[2021-05-12] MEDS: ACETAMINOPHEN 1,000 MG/100 ML VIAL IV PRN (17:01)
[2021-05-12] MEDS: CLINDAMYCIN 600 MG in DEXTROSE 5% 50 ML IV SCH (17:32)
--- NOTE | 2021-05-12 18:54 | Consultation ---
Date of Consultation May 12, 2021 Assessment & Plan (1) Neurogenic claudication due to lumbar spinal stenosis: s/p #1 removal of instrumentation L5-S1. #2 exploration of fusion L5-S1. #3 lumbar decompression with bilateral medial facetectomies and foraminotomies L3-4 and L4-5 #4 posterior spinal fusion L4-5. #5 placement of posterior instrumentation L4-5. #6 interbody fusion L4-5. #7 placement of peek cage 9 x 22 mm at L4-5 per #8 placement locally harvested morselized autograft in the posterior gutters. #9 placement infuse collagen sponge and master graft in the posterior lateral gutters and I factor in the interbody space Defer pain management, disposition to primary ortho team. Labs in am. (2) Myalgia: b/l thigh pain reported by patient post-op. if this persists consider dopplers r/o DVT. I do not think it is neuropathic - the thighs would correspond to nerve levels L2 and L3 - these leona were not operated on during today's procedure. (3) Gastroesophageal reflux disease without esophagitis: Cont daily PPI (4) Glaucoma: (5) Hyperlipidemia: (6) Hypertension: hold LAURA inhibitor for now. if creatinine tomorrow is stable and if BPs are high then resume the LAURA. (7) Tobacco use disorder: intake counselor to quit. decline nicoderm patch. (8) DVT prophylaxis: SCDs chemical means contraindicated. Thank you for this consult - we will follow with you. History of Present Illness Requesting Physician: Cameron Cardona DO Reason for Consultation: post-op medical management Attending Physician: Kevin Cardona DO History of Present Illness 75yo female with history of HTN, hyperlipidemia, prior lumbar back surgery, glaucoma, and GERD who presented today for elective lumbar back surgery due to lumbar DJD with resulting neurogenic claudication and painful radiculopathy. I saw her post-op on the surgical floor and she reported no chest pain, dyspnea, abd pain, nausea, emesis or uncontrolled back pain. She tolerated her dinner meal without issue. Allergies Allergy/AdvReac Type Severity Reaction Status Date / Time adhesive Allergy Intermediate Redness Verified 05/12/21 08:40 doxycycline Allergy Intermediate Rash Verified 05/12/21 12:42 niacin Allergy Intermediate Redness Verified 05/12/21 08:40 red yeast rice Allergy Unknown Unknown Verified 05/12/21 12:42 ezetimibe [From Zetia] AdvReac Intermediate Muscle Pain Verified 05/12/21 08:40 atorvastatin AdvReac Mild Muscle Pain Verified 05/12/21 12:42 choline fenofibrate AdvReac Mild Muscle Pain Verified 05/12/21 12:42 [From Trilipix] fenofibrate [From Tricor] AdvReac Mild Muscle Pain Verified 05/12/21 12:42 gemfibrozil [From Lopid] AdvReac Mild Muscle Pain Verified 05/12/21 12:42 pitavastatin [From Livalo] AdvReac Mild Muscle Pain Verified 05/12/21 12:42 pravastatin [From Pravachol] AdvReac Mild Muscle Pain Verified 05/12/21 12:42 rosuvastatin [From Crestor] AdvReac Mild Muscle Pain Verified 05/12/21 12:42 simvastatin AdvReac Mild Muscle Pain Verified 05/12/21 12:42 Home Medications Medication Instructions Recorded Confirmed Type cholecalciferol (vitamin D3) 50 2,000 units PO BID cap 06/01/19 05/12/21 History mcg (2,000 unit) capsule cranberry extract 500 mg tablet 500 mg PO QAM tab 06/01/19 05/12/21 History estradiol 0.05 mg/24 hr weekly 1 patch TD WEEKLY ea 06/01/19 05/12/21 History transdermal patch omega-3 fatty acids 1,200 mg PO QAM cap 06/01/19 05/12/21 History spironolactone 25 1 tab PO DAILY PRN tab 06/09/19 05/12/21 History mg-hydrochlorothiazide 25 mg tablet coenzyme Q10 [CoQ-10] 100 mg PO HS 04/22/21 05/12/21 History flaxseed oil 1,000 mg PO HS 04/22/21 05/12/21 History lorazepam 0.5 mg PO DAILY PRN 04/22/21 05/12/21 History omeprazole 40 mg PO QAM 04/22/21 05/12/21 History polyethylene glycol 3350 [Miralax] 17 g PO HS 04/22/21 05/12/21 History ramipril 10 mg PO QAM 04/22/21 05/12/21 History vitamin E 1 dose PO HS 04/22/21 05/12/21 History Patient History Medical History Diverticular disease GERD (gastroesophageal reflux disease) controlled Hearing deficit B/L PATHAK HLD (hyperlipidemia) HTN (hypertension) IBS (irritable bowel syndrome) Osteoarthritis Surgical History History of back surgery History of breast surgery History of cataract surgery History of colonoscopy History of dilation of urethra History of non-cataract eye surgery History of total abdominal hysterectomy and bilateral salpingo-oophorectomy Family History Father , age 78 Acute myocardial infarction Stroke Pacemaker Mother , age 94 Coronary heart disease Sister Diabetes Coronary heart disease Hyperlipidemia Hypertension Unknown Diabetes Hypertension Other No family history of adverse response to anesthesia Denies family history of Ovarian cancer Prostate cancer Myocardial infarction Breast cancer Colorectal cancer Social History (Updated 05/12/21 @ 23:03 by Gasper Del Real) Smoking Status: Current every day smoker Tobacco Type: Cigarettes Cigarettes Per Day: 10 cigarettes (tobacco use x 40 years); Second Hand Exposure: Yes ( smokes); Do You Dip or Chew Tobacco: No; Tobacco Cessation Education Requested by Patient: No Hx Alcohol Use: Yes Alcohol type: hard liquor Alcohol Intake Frequency: Monthly or Less Alcohol Intake Frequency Comment: social drinks Hx Substance Use: No Preferred Language: [place] Communication Ability: Effective Visual Impairment: Limited Hearing Ability: Use of Hearing Aid Estate Planning Paralegal Required: No Beliefs That Will Affect Care: None marital status: Current Living Situation: Spouse Current Living Situation Comment: [place] with current occupational status: retired current occupation: worked in [employer] at [employer] How many Children do You have: 5 How many Children do You have Comment: 1 adopted; 4 step-children. No biological children. Feels Safe at Home: Yes Safety Concerns: Feels Safe At This Time Childhood Exposure to Second-Hand Smoke: No caffeine: Yes (drinks soda ) Dental Care, Regularly: Yes Physical Activity Frequency: Daily Physical Activity Frequency Comment: walks her dog daily Seatbelt Use: always Sunscreen Use: Yes Assistive Devices: Walker Review of Systems Constitutional: no fever, no chills, no fatigue, no anorexia and no weight loss Eyes: no worsening vision Ear, Nose, Mouth, Throat: no dysphagia Respiratory: no cough, no dyspnea and no dyspnea on exertion Cardiovascular: no chest pain Gastrointestinal: no abdominal pain, no nausea, no vomiting and no diarrhea/loose stools Genitourinary: no difficulty urinating Musculoskeletal: + back pain Integumentary: no rash Neurologic: + numbness, + paresthesia and + radiating pain Psychiatric: no depression Endocrine: denies diabetes Hematologic / Lymphatic: no easy bleeding Physical Exam Constitutional: well developed and well nourished; no acute distress and no altered mental status Eyes: PERRL ENMT: Throat: + posterior oropharynx abnormality (mild irritation from recent intubation ) Neck: trachea midline, no thyromegaly Respiratory: normal respiratory effort, lungs clear to auscultation Cardiovascular: Rate/Rhythm: regular rate and regular rhythm Heart Sounds: normal S1 and normal S2; no murmur Vessels: posterior tibial pulses present and dorsalis pedis pulses present; no JVD Extremities: no edema Gastrointestinal (Abdomen): normal bowel sounds, soft, nontender, no hepatosplenomegaly Musculoskeletal: no cyanosis or clubbing, extremities motor strength 5/5 Skin: no rashes, warm and dry Neurologic: moves all extremities Psychiatric: Orientation: alert and oriented x 3 Lymphatic: no cervical lymphadenopathy Results & Data ([facility]) Vital Signs (Past 12 Hours) Vital Signs Temp Pulse Pulse Pulse Resp BP BP 05/12/21 16:00 36.9 C 66 20 137/69 05/12/21 14:00 36.5 C 75 20 140/65 05/12/21 13:31 34.7 C L 50 L 15 154/72 H 05/12/21 13:06 34.8 C L 52 L 16 152/76 H 05/12/21 12:50 36.1 C L 50 L 16 138/65 05/12/21 12:40 36.1 C L 52 L 16 151/61 H 05/12/21 12:30 56 L 14 128/62 05/12/21 12:20 54 L 14 119/58 L 05/12/21 12:10 64 14 116/95 05/12/21 12:00 74 12 127/62 05/12/21 11:54 36.1 C L 78 16 132/59 L 05/12/21 08:31 36.6 C 62 20 157/69 H Pulse Ox 05/12/21 16:00 94 05/12/21 14:00 93 05/12/21 13:31 93 05/12/21 13:06 98 05/12/21 12:50 100 05/12/21 12:40 99 05/12/21 12:30 94 05/12/21 12:20 94 05/12/21 12:10 99 05/12/21 12:00 99 05/12/21 11:54 99 05/12/21 08:31 98 Laboratory Results Labs 05/12/21 05/12/21 05/12/21 08:24 08:24 08:48 [facility], RNA, NAAT NEGATIVE Blood Type B Positive Antibody Screen NEGATIVE Crossmatch See Detail PG Care Time/CCT Total # of Minutes Spent Total Time Spent with Patient: Total time spent is greater than 50% in coordination of care (as documented) at patient's floor/unit and/or counseling patient: Coding Level of Care Code 24819 Subseq Hosp Care Lvl 3 Diagnoses Neurogenic claudication due to lumbar spinal stenosis M48.062 Myalgia M79.10 Gastroesophageal reflux disease without esophagitis K21.9 Glaucoma H40.9 Glaucoma type: unspecified Laterality: unspecified laterality Hyperlipidemia E78.5 Hyperlipidemia type: unspecified Hypertension I10 Hypertension type: essential hypertension Tobacco use disorder F17.200 DVT prophylaxis Z29.9 (1) Hyperlipidemia Hyperlipidemia type: unspecified Qualified Code(s): E78.5 - Hyperlipidemia, unspecified (2) Glaucoma Glaucoma type: unspecified Laterality: unspecified laterality Qualified Code(s): H40.9 - Unspecified glaucoma (3) Hypertension Hypertension type: essential hypertension Qualified Code(s): I10 - Essential (primary) hypertension
[2021-05-12] MEDS ORDERED: COUGH DROP (SUGAR FREE) LOZ 24 LOZ/1 BOX BUCCAL ONE (19:27)
[2021-05-12] MEDS ORDERED: ESTRADIOL TD SCH (21:00)
[2021-05-12] MEDS ORDERED: NON-FORMULARY MEDICATION (Coenzyme Q10 [Coq-10] 100 mg Capsule) PO SCH (21:00)
[2021-05-12] MEDS: POLYETHYLENE (MIRALAX) 17 GM PACK PO SCH (21:42)
[2021-05-12] MEDS: CHOLECALCIFEROL 1,000 UNITS 25 MCG TAB PO SCH (21:43)
[2021-05-12] MEDS: DOCUSATE SODIUM/SENNA 50/8.6MG TAB PO SCH (21:43)
[2021-05-12] MEDS: ACETAMINOPHEN 500 MG TAB PO PRN (21:44)
[2021-05-13] MEDS: LACTATED RINGER'S 1,000 ML IV SCH (01:02)
[2021-05-13] MEDS: CLINDAMYCIN 600 MG in DEXTROSE 5% 50 ML IV SCH (02:24)
[2021-05-13] MEDS: POLYETHYLENE (MIRALAX) 17 GM PACK PO SCH ×4 (05:29→21:03)
[2021-05-13] MEDS: ACETAMINOPHEN 1,000 MG/100 ML VIAL IV PRN (05:35)
[2021-05-13 05:54] LABS: Basophils # (auto) 0.01 K/uL (0-0.2); Basophils % (auto) 0.1 %; Eosinophils # (auto) 0.02 K/uL (0-0.5); Eosinophils % (auto) 0.2 %; Hematocrit (blood only) 29.5 % (37-47); Hemoglobin 10.4 g/dL (12.0-16.0); Immature Granulocytes # (auto) 0.03 K/uL (0.00-0.02); Immature Granulocytes % (auto) 0.3 %; Lymphocytes # (auto) 1.33 K/uL (1.2-3.4); Lymphocytes % (auto) 14.1 %; Mean Corpuscular Hemoglobin 33.3 pg (25-34); Mean Corpuscular Hgb Conc 35.3 g/dL (32-36); Mean Corpuscular Volume 94.6 fL (80-100); Mean Platelet Volume 10.4 fL (7.4-10.4); Monocytes # (auto) 0.61 K/uL (0.11-0.59); Monocytes % (auto) 6.5 %; Neutrophils # (auto) 7.44 K/uL (1.4-6.5); Neutrophils % (auto) 78.8 %; Platelet Count 216 K/uL (130-400); RDW Coefficient of Variation 12.9 % (11.5-14.5); RDW Standard Deviation 44.5 fL (36.4-46.3); Red Blood Count 3.12 M/uL (4.2-5.4); White Blood Count 9.44 K/uL (4.8-10.8)
[2021-05-13 06:24] LABS: BUN Creatinine Ratio 20.8 (10-20); Calcium 8.6 mg/dl (8.5-10.1); Creatinine Clr Calc Pharmacy 74.6 ml/min; Est GFR (African American) 103.5 ml/min; Est GFR (Non-African American) 89.3 ml/min; Potassium 4.1 mmol/L (3.5-5.1)
[2021-05-13] MEDS: CHOLECALCIFEROL 1,000 UNITS 25 MCG TAB PO SCH ×2 (07:49→21:02)
[2021-05-13] MEDS: PANTOprazole 40 MG TAB PO SCH (07:49)
--- NOTE | 2021-05-13 08:26 | Orthopedic Progress Note ---
Date of Service May 13, 2021 Assessment & Plan (1) Neurogenic claudication due to lumbar spinal stenosis: Admission and Anticipated Discharge Date Admission Date: May 12, 2021 At this time initiate physical therapy monitor SUAD operatively discharge home in the next few days. Subjective Back pain controlled leg pain markedly improved Physical Exam Physical Exam: On exam patient is in the chair at the bedside. She is good strength testing. Appears comfortable. Results & Data ([facility]) Vital Signs (Past 12 Hours) Vital Signs Temp Pulse Pulse Resp BP Pulse Ox 05/13/21 07:29 36.8 C 55 L 17 152/72 H 97 05/13/21 02:25 36.6 C 58 L 16 151/67 H 95 05/12/21 23:03 36.6 C 60 16 149/68 H 97
[2021-05-13] MEDS ORDERED: ENALAPRIL MALEATE 10 MG TAB PO SCH (09:00)
[2021-05-13] MEDS ORDERED: ENALAPRIL MALEATE 10 MG TAB PO ONE (10:04)
--- NOTE | 2021-05-13 14:48 | Hospitalist Progress Note ---
Date of Service May 13, 2021 Assessment & Plan (1) Neurogenic claudication due to lumbar spinal stenosis: s/p #1 removal of instrumentation L5-S1. #2 exploration of fusion L5-S1. #3 lumbar decompression with bilateral medial facetectomies and foraminotomies L3-4 and L4-5 #4 posterior spinal fusion L4-5. #5 placement of posterior instrumentation L4-5. #6 interbody fusion L4-5. #7 placement of peek cage 9 x 22 mm at L4-5 per #8 placement locally harvested morselized autograft in the p osterior gutters. #9 placement infuse collagen sponge and master graft in the posterior lateral gutters and I factor in the interbody space Defer pain management, disposition to primary ortho team. Hgb only slight drop doing well SUAD drain in place ambulating on own (2) Myalgia: b/l thigh pain reported by patient post-op. I do not think it is neuropathic - the thighs would correspond to nerve levels L2 and L3 - these leona were not operated on during this procedure Not concerning at all for DVT follow and pt can discuss with Ortho if persists (3) Gastroesophageal reflux disease without esophagitis: Cont daily PPI (4) Glaucoma: no meds on home list (5) Hyperlipidemia: restart home flaxseed oil on discharge (6) Hypertension: BPs elevated today, renal function normal resume home ACEi or formulary equivalent (7) Tobacco use disorder: commercial counsel to quit. decline nicoderm patch. (8) DVT prophylaxis: SCDs chemical means contraindicated. Hospitalist Service will sign off as patient is medically stable at this time. Please feel free to reach out if new or acute issues arise Admission and Anticipated Discharge Date Admission Date: May 12, 2021 Subjective Pt feeling well. Has mild lower back pain. Has some soreness in upper thighs but denies any other problems. No CP or SOB, no nausea. Had a BM today and is making urine. Is ambulating to the bathroom and back on her own Review of Systems Review of Systems: All systems reviewed & are unremarkable except as noted in HPI & below Physical Exam Constitutional: WD/WN, vitals as above Eyes: + anicteric sclerae Neck: trachea midline, no thyromegaly Respiratory: normal respiratory effort, lungs clear to auscultation Cardiovascular: RRR, no murmur, no edema Chest (Breasts): Chest: normal inspection of chest Gastrointestinal (Abdomen): normal bowel sounds, soft, nontender, no hepatosplenomegaly Musculoskeletal: Extremities: extremities normal to inspection; no cyanosis and no clubbing Skin: no rashes, warm and dry Neurologic: moves all extremities and awake; no focal motor deficits Psychiatric: A+Ox3, euthymic affect Lymphatic: no lymphedema Results & Data Results & Data ([facility]) Vital Signs (Past 12 Hours) Vital Signs Temp Pulse Resp BP Pulse Ox 05/13/21 11:28 36.8 C 57 L 16 146/77 H 97 05/13/21 07:29 36.8 C 55 L 17 152/72 H 97 Laboratory Results 05/13/21 05/13/21 Range/Units 05:21 05:21 WBC 9.44 (4.8-10.8) K/uL RBC 3.12 L (4.2-5.4) M/uL Hgb 10.4 L (12.0-16.0) g/dL Hct 29.5 L (37-47) % MCV 94.6 (80-100) fL MCH 33.3 (25-34) pg MCHC 35.3 (32-36) g/dL RDW Std Deviation 44.5 (36.4-46.3) fL RDW Coeff of [place] 12.9 (11.5-14.5) % Plt Count 216 (130-400) K/uL MPV 10.4 (7.4-10.4) fL Immature Gran % (Auto) 0.3 % Neut % (Auto) 78.8 % Lymph % (Auto) 14.1 % [place] % (Auto) 6.5 % Eos % (Auto) 0.2 % Baso % (Auto) 0.1 % Neut # (Auto) 7.44 H (1.4-6.5) K/uL Lymph # (Auto) 1.33 (1.2-3.4) K/uL [place] # (Auto) 0.61 H (0.11-0.59) K/uL Eos # (Auto) 0.02 (0-0.5) K/uL Baso # (Auto) 0.01 (0-0.2) K/uL Immature Gran # (Auto) 0.03 H (0.00-0.02) K/uL Sodium 135 L (136-145) mmol/L Potassium 4.1 (3.5-5.1) mmol/L Chloride 105 (98-107) mmol/L Carbon Dioxide 26 (21-32) mmol/L Anion Gap 4.0 (3-11) BUN 13 (7-18) mg/dl Creatinine 0.61 (0.6-1.2) mg/dl Est Cr Clr Drug Dosing 74.6 ml/min Est GFR ( Amer) 103.5 ml/min Est GFR (Non-Af Amer) 89.3 ml/min BUN/Creatinine Ratio 20.8 H (10-20) Glucose 99 (70-99) mg/dl Calcium 8.6 (8.5-10.1) mg/dl PG Care Time/CCT Total # of Minutes Spent Total Time Spent with Patient: Total time spent is greater than 50% in coordination of care (as documented) at patient's floor/unit and/or counseling patient: Coding Level of Care Code 22827 Subseq Hosp Care Lvl 2 Diagnoses Neurogenic claudication due to lumbar spinal stenosis M48.062 Myalgia M79.10 Gastroesophageal reflux disease without esophagitis K21.9 Glaucoma H40.9 Glaucoma type: unspecified Laterality: unspecified laterality Hyperlipidemia E78.5 Hyperlipidemia type: unspecified Hypertension I10 Hypertension type: essential hypertension Tobacco use disorder F17.200 DVT prophylaxis Z29.9 (1) Glaucoma Glaucoma type: unspecified Laterality: unspecified laterality Qualified Code(s): H40.9 - Unspecified glaucoma (2) Hyperlipidemia Hyperlipidemia type: unspecified Qualified Code(s): E78.5 - Hyperlipidemia, unspecified (3) Hypertension Hypertension type: essential hypertension Qualified Code(s): I10 - Essential (primary) hypertension
[2021-05-13] MEDS: ACETAMINOPHEN 500 MG TAB PO PRN (18:46)
[2021-05-13] MEDS: DOCUSATE SODIUM/SENNA 50/8.6MG TAB PO SCH (21:03)
[2021-05-14] MEDS: ACETAMINOPHEN 500 MG TAB PO PRN (04:43)
[2021-05-14] MEDS: CHOLECALCIFEROL 1,000 UNITS 25 MCG TAB PO SCH (07:30)
[2021-05-14] MEDS: PANTOprazole 40 MG TAB PO SCH (07:32)
[2021-05-14] MEDS ORDERED: bisacodyL 10 MG SUPP PR PRN (08:00)
--- NOTE | 2021-05-14 08:16 | Discharge Summary ---
Date of Service May 14, 2021 Admission HPI Per Admitting Provider This is a 75-year-old female well-known to me the presents with chronic system back and leg pain. Failing course of nonoperative care is here for surgical invention. Principal Diagnosis Lumbar spinal stenosis Discharge Data Allergies Allergy/AdvReac Type Severity Reaction Status Date / Time adhesive Allergy Intermediate Redness Verified 05/12/21 08:40 doxycycline Allergy Intermediate Rash Verified 05/12/21 12:42 niacin Allergy Intermediate Redness Verified 05/12/21 08:40 red yeast rice Allergy Unknown Unknown Verified 05/12/21 12:42 ezetimibe [From Zetia] AdvReac Intermediate Muscle Pain Verified 05/12/21 08:40 atorvastatin AdvReac Mild Muscle Pain Verified 05/12/21 12:42 choline fenofibrate AdvReac Mild Muscle Pain Verified 05/12/21 12:42 [From Trilipix] fenofibrate [From Tricor] AdvReac Mild Muscle Pain Verified 05/12/21 12:42 gemfibrozil [From Lopid] AdvReac Mild Muscle Pain Verified 05/12/21 12:42 pitavastatin [From Livalo] AdvReac Mild Muscle Pain Verified 05/12/21 12:42 pravastatin [From Pravachol] AdvReac Mild Muscle Pain Verified 05/12/21 12:42 rosuvastatin [From Crestor] AdvReac Mild Muscle Pain Verified 05/12/21 12:42 simvastatin AdvReac Mild Muscle Pain Verified 05/12/21 12:42 Consultations 05/12/21 13:22 Consult Hospitalist Routine Procedures Performed Operation Date: 05/12/21 09:35 Actual Procedures p L3-L5 Decompression/Fusion, Spinal Cord Monitoring(Not Applicable) - Kevin Cardona DO s L5-S1 Hardware Removal(Not Applicable) - Kevin Cardona DO Ordered Studies 05/12/21 07:00 FL lumbar spine 2-3V Routine Hospital Course (1) Neurogenic claudication due to lumbar spinal stenosis: Patient with lumbar decompression fusion tolerates well second orthopedic for postoperative. Postop day 1 she was up and ambulating postop day 2 she is tolerating physical therapy well SUAD drain decreasing probably. Bowels working well. Excellent strength testing. Socially discharged home. Discharge orders instructions from the chart for further review. Total Time Total Time Spent Total Time Spent (In Minutes): 20 minutes Total Time Includes: Examination of the Patient, Discharge Planning, Medication Reconciliation, Communication With Other Providers and Other Discharge Plan Discharge Items Patient Disposition: Home - Self-Care Reason For Visit: Other Intevertebral Dusc Degeneration, Lumbar Shey Discharge Diagnosis: Lumbar spinal stenosis with neurogenic claudication, spondylolisthesis L4-L5 Activity: As commented below Non-emergency contact: Primary Care Provider Call non-emergency contact if: you have any medication questions Follow-up/Referrals: Jose Spivey MD [Primary Care Provider] - Diet: Regular Addtl Attending Provider Instructions: ACTIVITY RECOMMENDATIONS: SELF CARE INSTRUCTIONS AFTER THORACIC/LUMBAR FUSIONS 1. You may walk to your tolerance. It is good exercise for your legs and back. Expect some back and intermittent leg aches and pains. 2. You may perform "counter-top" level activities (make a sandwich, andrea with a project, etc.). 3. No bending or lifting of more than 10 pounds or back twisting of any nature (roll like a log when turning in bed). 4. You may ride in a car for 20-30 minutes at a time. No driving until after your first visit with your doctor. 5. Frequent changes of position and restricting sitting to 30 minutes at a time will help limit the amount of back spasms and stiffness you may experience. 6. You may discontinue the use of ambulatory aids (cane, crutches, etc.) once your strength and confidence allow. 7. You may electric accounting machine operator the shower and let water strike your incision when you arrive home at least once daily. Do not take a tub bath, sit in a hot tub or go into a swimming pool until after your first recheck in the office. SPECIAL CARE INSTRUCTIONS: VERY IMPORTANT TO READ AND REVIEW A. Your surgical incision has been closed with a cosmetic suture under the skin that will dissolve in about 6 weeks. In 14 days, you can use a pair of clean scissors and cut the suture that is left outside of the skin at the ends of your incision. 1. The small skin tapes can be removed 7 days after surgery if they have not fallen off by that point. 2. You may keep the wound open to air as much as possible to promote healing after post-op day number 5 unless told otherwise by your doctor. 3. If you think the wound looks like it is becoming infected (redness or worsening drainage) and/or you are experiencing fever, chill or worsening back pain and muscle spasms, contact the office so that we may evaluate you as soon as possible. B. Complications are uncommon, but please contact us if you have any signs or symptoms of: 1. wound infection (fever higher than 102.5 degrees F, redness, separation of wound, drainage, or increasing pain from the incision) 2. blood clots in legs (pain, swelling, redness and warmth in legs) 3. urinary tract infection (fever higher than 102.5 degrees F, burning upon urination or increased frequency of urination) 4. nerve problems (inability to walk on your toes or heels, numbness, loss of bowel or bladder control) 5. any other symptoms that concern you C. Please call the office at if you have any concerns or questions about your operation or recovery. D. No smoking! Smoking drastically decreases the chance of a solid fusion. E. Do not take any anti-inflammatory medications (Indocin, Advil, Motrin, Aspirin, Naprosyn, etc.) as these may inhibit the chance of a solid fusion. Tylenol is okay to take for pain. MANAGING PAIN AFTER SPINAL SURGERY 1. Narcotic medication is intended for short-term use and will be provided for surgical pain. Surgical pain usually lasts for a period of 4-6 weeks. Narcotic medication includes Percocet, Vicodin, Darvocet, Tylenol #3 or Lortab. 2. Longer-term pain is more appropriately treated with non-narcotic medication such as Tylenol ES. 3. Muscle spasm is not appropriately treated with narcotics. Muscle relaxers such as Soma, Flexeril or Skelaxin can be used along with Tylenol ES. 4. Remember that we all live with some "aches and pains". This is not unusual or uncommon after an injury or as we get older. a. Back pain is expected and may include muscle spasms for 4 to 6 weeks after surgery. The pain should gradually improve. If the pain worsens for no apparent reason, please contact the office. b. Intermittent leg pain may also be experienced and should not be concerned about unless it worsens for no apparent reason. If so, please contact the office. 5. We will provide appropriate medication within the normal guidelines of their prescribed use. We will also be very cautious and aware of potential abuse and extended duration of patients' medication needs. a. Pain medications are for your comfort and to assist with sleep and rest so that the tissue can heal. They are not provided in order to return to normal activity and should not be used through the day. To do so or worsening pain at night can result from ongoing tissue damage and development of tolerance to the prescribed medicine. 6. Please allow 2-3 days to process refills. Prescriptions will not be mailed but must be picked up at the office. FOLLOW UP VISIT: Keep your scheduled follow-up appointment. Any questions, please call the office at . Pending Studies at Discharge: No Stand-Alone Forms: My [facility], Smoking Cessation Medications and DC Order Prescriptions: Continued estradiol 0.05 mg/24 hr patch weekly 1 patch TD WEEKLY RF: 0 cranberry extract 500 mg tablet 500 mg PO QAM RF: 0 omega-3 fatty acids capsule 1,200 mg PO QAM RF: 0 cholecalciferol (vitamin D3) 2,000 unit capsule 2,000 units PO BID RF: 0 spironolacton-hydrochlorothiaz 25-25 mg tablet 1 tab PO DAILY PRN (Reason: Fluid Retention) RF: 0 flaxseed oil 1,000 mg Capsule 1,000 mg PO HS RF: 0 coenzyme Q10 [CoQ-10] 100 mg Capsule 100 mg PO HS RF: 0 vitamin E 1 dose PO HS RF: 0 omeprazole 40 mg capsule,delayed release(DR/EC) 40 mg PO QAM RF: 0 lorazepam 0.5 mg tablet 0.5 mg PO DAILY PRN (Reason: Anxiety) RF: 0 ramipril 10 mg capsule 10 mg PO QAM RF: 0 polyethylene glycol 3350 [Miralax] 17 gram/dose Powder 17 g PO HS RF: 0 Discharge Orders: Discharge Order (Routine); Ordered 05/14/21 Ordered By: Kevin Jamil/Other Patient Handouts: DVT Post Op Prevention Admission Data Admit Date/Time: 05/12/21 12:09 Attending Provider: Kevin Cardona Admit Provider: Kevin Cardona Primary Care Provider: Jose Spivey Other Providers: Chantelle Betancourt Other Interventions: Discharge Summary Assessment (RN) Last Done: 05/14/21 09:06
[2021-05-14] MEDS ORDERED: dexAMETHasone 8 MG in SYRINGE 0 ML IV SCH (09:00)
[2021-05-14] MEDS ORDERED: RAMIPRIL PO SCH (09:00)
== END 2021-05-14 13:11 | disposition home or self-care (01) | DRG 455 ==
LOC: ASU 08:10 → 3E 12:09

== ENCOUNTER 2024-04-18 10:47 | Inpatient (IN) ==
--- NOTE | 2024-04-07 15:43 | Anesthesiology Consultation ---
Date of Service April 07, 2024 Assessment & Plan (1) Encounter for pre-operative examination: - Infectious disease screening: Per assessment on 04/07/24: No known infectious disease contacts or current infectious disease symptoms. - PCP visit (04/07/24): "Scheduled for L2- L4 decompression and fusion on 04/24/[address] Cardona. She is feeling well, no acute complaints. PE completed. VSS. Labs, CXR, and EKG reviewed. Pt at acceptable risk to proceed with planned procedure." Chart Review Chart Review: Acceptable Risk for Surgery and Patient NOT seen in Pre Admission Testing History Surgery Operation Date: 04/24/24 09:35 Proposed Procedures p L2-L4 Decompression and Fusion, Spinal Cord Monitoring - Kevin Cardona, Height/Weight Height: 5 ft 3.5 in Weight: 61.689 kg Allergies Allergy/AdvReac Type Severity Reaction Status Date / Time adhesive Allergy Severe Redness & Verified 04/07/24 14:53 skin irritation oxycodone Allergy Severe "out of Verified 04/07/24 15:03 body experience" doxycycline Allergy Intermediate Rash Verified 04/07/24 14:53 niacin Allergy Intermediate Redness Verified 04/07/24 14:53 ciprofloxacin Allergy Unknown Unknown Verified 04/07/24 14:53 red yeast rice Allergy Unknown Unknown Verified 04/07/24 14:53 sulfamethizole Allergy Unknown Unknown Verified 04/07/24 14:53 ezetimibe [From Zetia] AdvReac Intermediate Muscle Pain Verified 04/07/24 14:53 atorvastatin AdvReac Mild Muscle Pain Verified 04/07/24 14:53 choline fenofibrate AdvReac Mild Muscle Pain Verified 04/07/24 14:53 [From Trilipix] fenofibrate [From Tricor] AdvReac Mild Muscle Pain Verified 04/07/24 14:53 gemfibrozil [From Lopid] AdvReac Mild Muscle Pain Verified 04/07/24 14:53 pitavastatin [From Livalo] AdvReac Mild Muscle Pain Verified 04/07/24 14:53 pravastatin [From Pravachol] AdvReac Mild Muscle Pain Verified 04/07/24 14:53 rosuvastatin [From Crestor] AdvReac Mild Muscle Pain Verified 04/07/24 14:53 simvastatin AdvReac Mild Muscle Pain Verified 04/07/24 14:53 Medications Home Medications Medication Instructions Recorded Confirmed Last Taken cholecalciferol (vitamin D3) 50 2,000 units PO BID 06/01/19 04/07/24 05/11/21 21:00 mcg (2,000 unit) capsule cranberry extract 500 mg tablet 500 mg PO BID 06/01/19 04/07/24 04/28/21 08:00 estradiol 0.05 mg/24 hr weekly 1 patch transdermal WEEKLY 06/01/19 04/07/24 05/10/21 08:00 transdermal patch omega-3 fatty acids 1,200 mg PO QAM 06/01/19 04/07/24 04/28/21 08:00 spironolactone 25 1 tab PO DAILY PRN Fluid Retention 06/09/19 04/07/24 Unknown mg-hydrochlorothiazide 25 mg tablet coenzyme Q10 100 mg capsule 100 mg PO HS 04/22/21 04/07/24 04/28/21 08:00 (CoQ-10) polyethylene glycol 3350 17 17 g PO HS 04/22/21 04/07/24 05/11/21 21:00 gram/dose oral powder (Miralax) phenazopyridine 100 mg tablet 100 mg PO TID PRN pain 6 doses #20 05/06/23 04/07/24 Unknown (Pyridium) tabs lorazepam 0.5 mg tablet 0.5 mg PO DAILY PRN Anxiety #30 08/23/23 04/07/24 Unknown tabs omeprazole 40 mg capsule,delayed 40 mg PO QAM #90 caps 02/16/24 04/07/24 Unknown release cholestyramine-aspartame 4 gram 4 g PO DAILY #201.6 grams 03/23/24 04/07/24 Unknown oral powder (Cholestyramine Light) hydrocortisone 1 % topical cream 1 applic topical BID PRN skin 03/23/24 04/07/24 Unknown irritation #28.35 grams mupirocin 2 % topical ointment 1 applic topical BID PRN skin 03/23/24 04/07/24 Unknown irritation #15 grams cyanocobalamin (vitamin B-12) 1,000 mcg PO QAM 04/07/24 04/07/24 Unknown 1,000 mcg capsule ramipril 2.5 mg capsule 2.5 mg PO QAM 04/07/24 04/07/24 Unknown Past Medical History Medical History (Updated 04/07/24 @ 15:55 by Karina Kenyon) Anxiety Degenerative disc disease Diverticular disease GERD (gastroesophageal reflux disease) controlled Glaucoma Monitoring/no drops at this time Hearing deficit B/L PATHAK HLD (hyperlipidemia) HTN (hypertension) IBS (irritable bowel syndrome) Lumbar disc herniation with radiculopathy Multiple pulmonary nodules Osteoarthritis Spinal stenosis Past Family History Family History Father , age 78 Acute myocardial infarction Stroke Pacemaker Mother , age 94 Coronary heart disease Sister Diabetes Coronary heart disease Hyperlipidemia Hypertension Unknown Diabetes Hypertension Other No family history of adverse response to anesthesia Denies family history of Ovarian cancer Prostate cancer Myocardial infarction Breast cancer Colorectal cancer Past Surgical History Surgical History History of back surgery (10/03/12) lumbar fusion L5-S1 History of breast surgery removal of lump (enlarged milk gland) History of cataract surgery R/L History of colonoscopy History of dilation of urethra multiple History of non-cataract eye surgery small cyst removal History of total abdominal hysterectomy and bilateral salpingo-oophorectomy (1976) S/P lumbar fusion (05/12/21) L3-L5 decompression and fusion Social History Smoking Status: Current every day smoker tobacco type: cigarettes Smoking cigarettes per day: 10 cigarettes (tobacco use x 40 years) - will quit prior to surgery Do You Dip or Chew Tobacco: No Hx Alcohol Use: Yes Alcohol type: hard liquor alcohol intake frequency: a few times a week Hx Substance Use: No substance use type: does not use Lab Results Anesthesia Preop Results Results Anesthesia Widget: WBC 4.74 K/ul (4.8-10.8) L 03/31/24 Hgb 12.6 g/dl (12.0-16.0) 03/31/24 Hct 37.8 % (37.0-47.0) 03/31/24 Plt 246 K/uL (130-400) 03/31/24 Na 140 mmol/L (136-145) 03/31/24 K 4.3 mmol/L (3.5-5.1) 03/31/24 Cl 109 mmol/L (98-107) H 03/31/24 CO2 26 mmol/L (21-32) 03/31/24 BUN 16 mg/dl (6-23) 03/31/24 Creat 0.65 mg/dl (0.6-1.2) 03/31/24 Glucose Level 88 mg/dl (70-99(Fasting)) 03/31/24 PT 10.2 Seconds (9.0-12.0) 03/31/24 PTT 25 Seconds (21-31) 03/31/24 INR 0.9 (0.9-1.1) 03/31/24 Urine Color Yellow 03/31/24 Urine Appearance Clear (Clear) 03/31/24 Urine pH 6.0 (4.5-7.5) 03/31/24 Urine Specific [place] 1.006 (1.000-1.030) 03/31/24 Urine Protein Negative (Negative) 03/31/24 Urine Glucose (UA) Negative (Negative) 03/31/24 Urine Ketones Negative (Negative) 03/31/24 Urine Blood Negative (Negative) 03/31/24 Urine Nitrite Negative (Negative) 03/31/24 Urine Bilirubin Negative (Negative) 03/31/24 Urine Urobilinogen Negative (Negative) 03/31/24 Urine Leukocyte Esterase Negative (Negative) 03/31/24 Blood Type B Positive 03/31/24 Antibody Screen NEGATIVE 03/31/24 Testing Electrocardiogram Date: 03/31/24 SB at 58bpm. LAD. Chest X-Ray Date: 03/31/24 Findings: + NAD Echocardiogram Date: 12/05/15 EF 55 to 60%. No regional wall motion abnormalities. Mild MR. RVSP 19 mmHg. Stress Test Date: 11/21/19 Type: exercise Negative exercise stress echo/ECG for ischemia at 88% MPHR. No exercise-induced chest pain. 80% max predicted heart rate. 7.8 METS. Mild MR. Mild aortic sclerosis. Trace to mild AI. Mild TR.
[~2024-04-18 10:47] MED LIST changes: -ACETAMINOPHEN 500 MG TAB PO SCH; -CLINDAMYCIN 600 MG/54 ML BAG IV SCH; -CeleBREX 200 MG CAP PO SCH; +DEXAMETHASONE SOD INJ 4 MG/ML VIAL ONE; -GABAPENTIN 300 MG CAP PO SCH; +LIDOCAINE 2% 2 ML VIAL/AMP(20MG/ML) INFIL ONE; -LR 15ML/HR IV SCH; +MIDAZOLAM HCL 1 MG/ML 2ML VIAL ONE; +ONDANSETRON INJ 2 MG/ML 2 ML VIAL ONE; +PROPOFOL IV EMULSION 10 MG/ML 20 ML VIAL IV ONE; +ROCURONIUM BROMIDE 10 MG/ML 5 ML VIAL IV ONE; +SUGAMMADEX SODIUM 200 MG/2 ML VIAL IV ONE; -ceFAZolin 1000MG 1,000 MG/7.5 ML SYR IV SCH; +fentaNYL citrate PF 100 MCG/2 ML VIAL ONE
[2024-04-18] MEDS: VANCOMYCIN HCL 1,000 MG/270 ML BAG IV SCH (11:36)
[2024-04-18] MEDS: LR 15ML/HR IV SCH (11:36)
[2024-04-18] MEDS: LR 60ML/HR IV SCH (11:37)
[2024-04-18] MEDS: ACETAMINOPHEN 500 MG TAB PO SCH (11:38)
[2024-04-18] MEDS: CeleBREX 200 MG CAP PO SCH (11:38)
[2024-04-18] MEDS: GABAPENTIN 300 MG CAP PO SCH (11:38)
[2024-04-18] MEDS ORDERED: PROMETHAZINE HCL 6.25 MG in SODIUM CHLORIDE 0.9% 50 ML IV PRN (11:53)
[2024-04-18] MEDS ORDERED: ATROPINE SULFATE 0.1 MG/ML 10ML SYR IV PRN (11:53)
[2024-04-18] MEDS ORDERED: ePHEDrine sulfate 50 MG/ML AMP IV PRN (11:53)
[2024-04-18] MEDS ORDERED: ONDANSETRON INJ 2 MG/ML 2 ML VIAL IV PRN ×2 (11:53→16:08)
--- NOTE | 2024-04-18 12:01 | History & Physical Bridge Note ---
Date of Service April 18, 2024 History & Physical Bridge Note I have examined the patient, reviewed the History & Physical and in the interval since the performance of the History & Physical I have noted the following changes of clinical significance: no changes noted
--- NOTE | 2024-04-18 12:03 | History & Physical Report ---
Date of Service April 18, 2024 Assessment & Plan (1) Neurogenic claudication due to lumbar spinal stenosis: Plan L2-L4 decompression and fusion hardware removal L4-L5 History of Present Illness Chief Complaint: Back and bilateral leg pain Primary Care Provider: Cristela Camarillo MD This is a 78-year-old female presents with chronic persistent back and bilateral leg pain after failing course of nonoperative care she is here for surgical invention. Allergies Allergy/AdvReac Type Severity Reaction Status Date / Time adhesive Allergy Severe Redness & Verified 04/18/24 11:24 skin irritation oxycodone Allergy Severe "out of Verified 04/18/24 11:24 body experience" doxycycline Allergy Intermediate Rash Verified 04/18/24 11:24 niacin Allergy Intermediate Redness Verified 04/18/24 11:24 ciprofloxacin Allergy Unknown Unknown Verified 04/18/24 11:24 red yeast rice Allergy Unknown Unknown Verified 04/18/24 11:24 sulfamethizole Allergy Unknown Unknown Verified 04/18/24 11:24 ezetimibe [From Zetia] AdvReac Intermediate Muscle Pain Verified 04/18/24 11:24 atorvastatin AdvReac Mild Muscle Pain Verified 04/18/24 11:24 choline fenofibrate AdvReac Mild Muscle Pain Verified 04/18/24 11:24 [From Trilipix] fenofibrate [From Tricor] AdvReac Mild Muscle Pain Verified 04/18/24 11:24 gemfibrozil [From Lopid] AdvReac Mild Muscle Pain Verified 04/18/24 11:24 pitavastatin [From Livalo] AdvReac Mild Muscle Pain Verified 04/18/24 11:24 pravastatin [From Pravachol] AdvReac Mild Muscle Pain Verified 04/18/24 11:24 rosuvastatin [From Crestor] AdvReac Mild Muscle Pain Verified 04/18/24 11:24 simvastatin AdvReac Mild Muscle Pain Verified 04/18/24 11:24 Home Medications Medication Instructions Recorded Confirmed Type cholecalciferol (vitamin D3) 50 2,000 units PO BID 06/01/19 04/18/24 History mcg (2,000 unit) capsule cranberry extract 500 mg tablet 500 mg PO BID 06/01/19 04/18/24 History estradiol 0.05 mg/24 hr weekly 1 patch transdermal WEEKLY 06/01/19 04/18/24 History transdermal patch omega-3 fatty acids 1,200 mg PO QAM 06/01/19 04/18/24 History spironolactone 25 1 tab PO DAILY PRN Fluid Retention 06/09/19 04/18/24 History mg-hydrochlorothiazide 25 mg tablet coenzyme Q10 100 mg capsule 100 mg PO HS 04/22/21 04/18/24 History (CoQ-10) polyethylene glycol 3350 17 17 g PO HS 04/22/21 04/18/24 History gram/dose oral powder (Miralax) phenazopyridine 100 mg tablet 100 mg PO TID PRN pain 6 doses #20 05/06/23 04/18/24 Rx (Pyridium) tabs lorazepam 0.5 mg tablet 0.5 mg PO DAILY PRN Anxiety #30 08/23/23 04/18/24 Rx tabs omeprazole 40 mg capsule,delayed 40 mg PO QAM #90 caps 02/16/24 04/18/24 Rx release hydrocortisone 1 % topical cream 1 applic topical BID PRN skin 03/23/24 04/18/24 Rx irritation #28.35 grams mupirocin 2 % topical ointment 1 applic topical BID PRN skin 03/23/24 04/18/24 Rx irritation #15 grams cyanocobalamin (vitamin B-12) 1,000 mcg PO QAM 04/07/24 04/18/24 History 1,000 mcg capsule ramipril 2.5 mg capsule 2.5 mg PO QAM 04/07/24 04/18/24 History cholestyramine-aspartame 4 gram 4 g PO DAILY #718.2 grams 04/18/24 04/18/24 Rx oral powder (Cholestyramine Light) Past Med/Surg History Problem List (Updated 04/18/24 @ 12:03 by Kevin Cardona DO) Neurogenic claudication due to lumbar spinal stenosis Encounter for pre-operative examination Vitamin B12 deficiency Superior oblique myokymia Medical History (Updated 04/18/24 @ 12:03 by Kevin Cardona DO) Lumbar disc herniation with radiculopathy Multiple pulmonary nodules Degenerative disc disease Spinal stenosis Glaucoma Monitoring/no drops at this time Anxiety Osteoarthritis IBS (irritable bowel syndrome) Diverticular disease GERD (gastroesophageal reflux disease) controlled Hearing deficit B/L PATHAK HTN (hypertension) HLD (hyperlipidemia) Surgical History S/P lumbar fusion (05/12/21) L3-L5 decompression and fusion History of dilation of urethra multiple History of breast surgery removal of lump (enlarged milk gland) History of total abdominal hysterectomy and bilateral salpingo-oophorectomy (1976) History of colonoscopy History of non-cataract eye surgery small cyst removal History of cataract surgery R/L History of back surgery (10/03/12) lumbar fusion L5-S1 Family History Father , age 78 Acute myocardial infarction Stroke Pacemaker Mother , age 94 Coronary heart disease Sister Diabetes Coronary heart disease Hyperlipidemia Hypertension Unknown Diabetes Hypertension Other No family history of adverse response to anesthesia Denies family history of Ovarian cancer Prostate cancer Myocardial infarction Breast cancer Colorectal cancer Social History Smoking Status: Current every day smoker Tobacco Type: Cigarettes Age Started Using Tobacco: 41; Cigarettes Per Day: 10 cigarettes (tobacco use x 40 years) - will quit prior to surgery; Second Hand Exposure: Yes (hx); Do You Dip or Chew Tobacco: No; Tobacco Cessation Education Requested by Patient: No Hx Alcohol Use: Yes Alcohol type: hard liquor Alcohol Intake Frequency: 4 or More x per/Week Hx Substance Use: No Preferred Language: Turkish Communication Ability: Effective Visual Impairment: No Limitations Hearing Ability: Use of Hearing Aid Recruitment Intern Required: No Beliefs That Will Affect Care: None marital status: / Current Living Situation: Alone current occupational status: retired current occupation: worked in [employer] at [employer] How many Children do You have: 5 How many Children do You have Comment: 1 adopted; 4 step-children. No biological children. Other Information That Helps Us Care for You: No Feels Safe at Home: Yes Safety Concerns: Feels Safe At This Time Childhood Exposure to Second-Hand Smoke: No Diet: regular caffeine: Yes (drinks soda ) during the past year weight has: remained stable Dental Care, Regularly: Yes Physical Activity Frequency: 1-2 Times per Week Seatbelt Use: always Sunscreen Use: Yes Assistive Devices: Glasses and Hearing Aid - Bilateral Physical Exam Physical Exam: Patient is alert and oriented Heart regular rhythm Lungs clear Results & Data Results & Data Vital Signs (Past 12 Hours) Vital Signs Temp Pulse Resp BP Pulse Ox O2 Del Method 04/18/24 11:43 37 C 63 20 137/71 99 Room Air
[2024-04-18] MEDS: BUPIVACAINE/EPINEPHRINE 0.25% 1:200,000 30 ML VIAL ONE (13:00)
[2024-04-18] MEDS: ceFAZolin 330 MG/ML 1 GM VIAL ONE (14:03)
--- NOTE | 2024-04-18 14:13 | Operative Report ---
Post Operative Report Pre & Post Diagnosis Operation Date: 04/18/24 12:15 Pre-Op Diagnosis: Lumbar Region Spinal Stenosis with Neurogenic Claudication Post-Op Diagnosis: Lumbar Region Spinal Stenosis with Neurogenic Claudication I identified the patient and participated in the time-out.: Yes Procedure Operation Date: 04/18/24 12:15 Actual Procedures #1 #1 removal of posterior instrumentation L4-5. #2 exploration of fusion L4-5. #3 lumbar decompression with bilateral medial facetectomies and foraminotomies L2-L3 L3-L4. #4 posterior spinal fusion L3-L4. #5 placement of posterior instrumentation L3-L5. #6 interbody fusion L3-L4. #7 placement spiral 11 x 26 mm at L3-L4. #8 placement locally harvested morselized autograft in the posterior gutters. #9 placement infuse collagen sponge, with Koros bone graft in the posterior lateral gutters and Morpheus in the interbody space. Surgeon Kevin Cardona, Performance Engineer Tesha Hernández Estimated Blood Loss 150 Findings Consistent with Post-Op Diagnosis Specimens None Indications This is a 78-year-old female well-known to me the presents problems diagnosis of failed course of nonoperative care she is here for surgical invention. Description of Procedure Patient was met with identified informed consent obtained. Patient was then taken to the operative suite underwent patient placed in a prone position on the Kenji table on top of the Maicol frame. All bony prominences well-padded eyes inspected to ensure no external pressure placed upon them. This point lumbar spine was prepped and draped in normal sterile fashion. Sharp dissection with the assistance of Bovie cautery form down to and exposing the lamina and tra nsverse processes of L3 and instrumentation L4-L5 bilaterally. I then proceeded to move the hardware bilaterally explored the fusion mass noting it to be mature and intact. Informed complete laminectomy of L3 including bilateral medial facetectomies and foraminotomies addressing severe spinal stenosis. Then performed a partial laminectomy of L2 including bilateral medial facetectomies to address all lateral recess stenosis. Pedicle screws were then placed at L3 L4-5 bilaterally with assistance of fluoroscopy in the process jami placed. By way of transforaminal approach on the right a complete discectomy of L3-L4 was performed endplates guarded to subcortical bleeding bone and 11 x 26 mm spiral cage filled with Morpheus bone graft tapped in position. The rods were then locked into final position bilaterally. The transverse processes of L3 L4 burred to subcortical bleeding bone. Infuse collagen sponge, with Koros and local autograft placed in the posterior lateral gutters. 15 round SUAD drain inserted. The incision was then closed with 1 Vicryl in the fascia 2-0 Vicryl subcutaneously and 4 Monocryl for final skin closure. Steri-Strips sterile dressing placed. Patient awakened taken to PACU stable condition. Please note spinal cord monitoring visualized at the procedure no changes noted. Gayle Hernández was present at the entire procedure and all the patient positioning complex portions of the surgery and final skin closure. I attest to the content of the Intraoperative Record and any orders documented therein. Any exceptions are noted below.
[2024-04-18] MEDS: FLOSEAL HEMOSTATIC MATRIX 10ML TOP ONE (14:15)
[2024-04-18] MEDS: fentaNYL citrate PF 100 MCG/2 ML VIAL IV PRN (14:40)
[2024-04-18] MEDS: HYDROmorphone INJ 2 MG/ML SYR/VIAL IV PRN (15:05)
--- NOTE | 2024-04-18 15:06 | Fluoroscopy Report ---
INTRAOPERATIVE RADIOGRAPHS CLINICAL HISTORY: Lumbar spinal fusion surgery. Fluoro time: 14 seconds Ka,r: 6.78 mGy FINDINGS: 2 spot fluoroscopic views of the lumbar spine are presented. There has been discectomy at L 3-L4, L4-L5, and L5-S1 with laminectomy and posterior fusion at these levels. Interpedicular screws a re present within the bodies of L3, L4, and L5. The orthopedic hardware appears intact. IMPRESSION: Intraoperative images from lumbar spinal fusion surgery as above. Electronically signed by: Ethan Foster M.D. 04/18/2024 3:05 PM
--- NOTE | 2024-04-18 15:23 | Anesthesiology Progress Note ---
Date of Service April 18, 2024 Anesthesia Post Procedure Vital Signs Vital Signs: Temp Pulse Pulse Resp BP Pulse Ox O2 Del Method 04/18/24 15:20 61 19 143/56 H 100 Nasal Cannula 04/18/24 15:10 52 L 14 135/62 100 Nasal Cannula 04/18/24 15:00 63 17 131/58 L 100 Nasal Cannula 04/18/24 14:50 63 14 110/66 98 Nasal Cannula 04/18/24 14:40 54 L 16 125/56 L 98 Nasal Cannula 04/18/24 14:33 36.1 C L 63 15 126/60 98 Nasal Cannula 04/18/24 11:43 37 C 63 20 137/71 99 Room Air O2 Flow Rate 04/18/24 15:20 3 04/18/24 15:10 4 04/18/24 15:00 4 04/18/24 14:50 4 04/18/24 14:40 4 04/18/24 14:33 4 04/18/24 11:43 Pain Intensity Back: Pain Intensity: 8 Transfer of Care Handoff Completed per policy Notes Mental Status: alert / awake / arousable Patient Amnestic to Procedure: Yes Nausea / Vomiting: adequately controlled Pain: adequately controlled Airway Patency, RR, SpO2: stable & adequate BP & HR: stable & adequate Hydration State: stable & adequate Anesthetic Complications: no major complications apparent
[2024-04-18] MEDS ORDERED: METOCLOPRAMIDE HCL INJ 5 MG/ML 2 ML VIAL IV PRN (16:08)
[2024-04-18] MEDS ORDERED: LORazepam 0.5 MG TAB PO PRN (16:08)
[2024-04-18] MEDS ORDERED: diphenhydrAMINE Capsule 25 MG CAP PO PRN (16:08)
[2024-04-18] MEDS ORDERED: traMADol HCL 50 MG TABLET PO PRN (16:08)
[2024-04-18] MEDS ORDERED: FAMOTIDINE 20 MG TAB PO PRN (16:08)
[2024-04-18] MEDS ORDERED: HYDROmorphone INJ 0.5 MG/0.5 ML SYR IV PRN (16:08)
[2024-04-18] MEDS ORDERED: SOD PHOSPHATE/SOD BIPHOSPHATE ENEMA 132 ML BTL PR PRN (16:08)
[2024-04-18] MEDS ORDERED: ONDANSETRON 4 MG OD TAB PO PRN (16:08)
[2024-04-18] MEDS ORDERED: DO NOT ADMINISTER FLU VACCINE PRN (16:08)
[2024-04-18] MEDS ORDERED: PROMETHAZINE HCL 12.5 MG in SODIUM CHLORIDE 0.9% 50 ML IV PRN (16:08)
[2024-04-18] MEDS ORDERED: hydrOXYzine HCl 25 MG TAB PO PRN (16:08)
[2024-04-18] MEDS ORDERED: HYDROmorphone INJ 1 MG/ML SYRINGE IV PRN (16:08)
[2024-04-18] MEDS ORDERED: bisacodyL 10 MG SUPP PR PRN (16:08)
[2024-04-18] MEDS ORDERED: DO NOT ADMINISTER PNEUMOCOCCAL VACCINE PRN (16:08)
[2024-04-18] MEDS ORDERED: MAGNESIUM HYDROXIDE SUSP 30 ML UDC PO PRN (16:08)
[2024-04-18] MEDS ORDERED: LORazepam 0.5 MG in SYRINGE 0.25 ML IV PRN (16:08)
[2024-04-18] MEDS ORDERED: ALUMINUM/MAGNESIUM SUSP 30 ML UDC PO PRN (16:08)
[2024-04-18] MEDS ORDERED: PHENAZOPYRIDINE HCL 100 MG TAB PO PRN (16:08)
[2024-04-18] MEDS ORDERED: SPIRONOLACTONE/HCTZ 25-25 PO PRN (16:08)
[2024-04-18] MEDS ORDERED: NALOXONE HCL 0.4 MG/1 ML VIAL/CARP IV PRN (16:08)
[2024-04-18] MEDS: LACTATED RINGER'S 1,000 ML IV SCH (16:32)
--- NOTE | 2024-04-18 16:42 | Hospitalist Progress Note ---
Date of Service April 18, 2024 Assessment & Plan (1) Neurogenic claudication due to lumbar spinal stenosis: Plan: L3-4 decompression and fusion and removal of hardware from L4-5 04/18/2024 Dr. Cardona (2) HTN (hypertension): Plan: Typically takes ramipril and spironolactone is will be held on postoperative day 1 resumed on postoperative day 2 (3) Vitamin B12 deficiency: Plan: Continue supplementation for vitamin B-12 deficiency Admission and Anticipated Discharge Date Admission Date: April 18, 2024 Subjective Patient 78-year-old female underwent decompression fusion with Dr. Cardona on 04/18/2024. Preoperatively suffers from hypertension taking ramipril and spironolactone, GERD taking omeprazole, anxiety using lorazepam was seen by primary care provider 04/07/2024 Physical Exam Physical Exam: The patient appeared well nourished and normally developed. Vital signs as documented. Head exam is normocephalic atraumatic Neck is without JVD, thyromegaly, or carotid bruits. Lungs are clear to auscultation, no focal loss of breath sounds Cardiac exam, Rhythm is regular.. No murmurs, rubs or gallops. Abdominal exam reveals normal bowel sounds, soft non tender, no masses Extremities are nonedematous and both pedal pulses are present Neurologic exam is alert and oriented, no focal loss of strength or sensation Skin is without bruises or rashes Psychologically is without concerns for anxiety or depression.. Results & Data Results & Data Vital Signs (Past 12 Hours) Vital Signs Temp Pulse Pulse Resp BP Pulse Ox O2 Del Method 04/18/24 16:19 Room Air 04/18/24 16:08 97.3 F L 56 L 16 160/67 H 96 Room Air 04/18/24 15:35 97.2 F L 54 L 18 149/65 H 100 Nasal Cannula 04/18/24 15:20 61 19 143/56 H 100 Nasal Cannula 04/18/24 15:10 52 L 14 135/62 100 Nasal Cannula 04/18/24 15:00 63 17 131/58 L 100 Nasal Cannula 04/18/24 14:50 63 14 110/66 98 Nasal Cannula 04/18/24 14:40 54 L 16 125/56 L 98 Nasal Cannula 04/18/24 14:33 97.0 F L 63 15 126/60 98 Nasal Cannula 04/18/24 11:43 98.6 F 63 20 137/71 99 Room Air O2 Flow Rate 04/18/24 16:19 04/18/24 16:08 04/18/24 15:35 2 04/18/24 15:20 3 04/18/24 15:10 4 04/18/24 15:00 4 04/18/24 14:50 4 04/18/24 14:40 4 04/18/24 14:33 4 04/18/24 11:43 PG Care Time/CCT Total # of Minutes Spent Total Time Spent with Patient: Total time spent is greater than 50% in coordination of care (as documented) at patient's floor/unit and/or counseling patient: Coding Level of Care Code None Diagnoses Neurogenic claudication due to lumbar spinal stenosis M48.062 HTN (hypertension) I10 Vitamin B12 deficiency E53.8
[2024-04-18] MEDS: ACETAMINOPHEN 1,000 MG/100 ML VIAL IV PRN (17:20)
[2024-04-18] MEDS ORDERED: Nursing to Pharmacy Communication SCH (18:00)
[2024-04-18] MEDS: DOCUSATE SODIUM/SENNA 50/8.6MG TAB PO SCH (20:50)
[2024-04-18] MEDS: CHOLECALCIFEROL 25 MCG (1000 UNITS) TAB PO SCH (20:51)
[2024-04-18] MEDS: ceFAZolin 1000MG 1,000 MG/7.5 ML SYR IV SCH (20:55)
[2024-04-18] MEDS: HYDROCODONE/ACETAMOPHEN 5/325MG TAB PO PRN (20:56)
[2024-04-19] MEDS: COUGH DROP (SUGAR FREE) LOZ 24 LOZ/1 BOX BUCCAL STA (01:31)
[2024-04-19] MEDS: POLYETHYLENE (MIRALAX) 17 GM PACK PO SCH (06:11)
[2024-04-19] MEDS: ACETAMINOPHEN 500 MG TAB PO PRN ×2 (06:23→12:51)
--- NOTE | 2024-04-19 07:51 | Hospitalist Progress Note ---
Date of Service April 19, 2024 Assessment & Plan (1) Neurogenic claudication due to lumbar spinal stenosis: Plan: L3-4 decompression and fusion and removal of hardware from L4-5 04/18/2024 Dr. Cardona (2) HTN (hypertension): Plan: Typically takes ramipril and spironolactone resume ramipril on 04/19/2024 (3) Vitamin B12 deficiency: Plan: Continue supplementation for vitamin B-12 deficiency Admission and Anticipated Discharge Date Admission Date: April 18, 2024 Subjective Patient seen postoperative in the company of her daughter. She requested take her own blood pressure medication which was sent to the pharmacy she is having no radicular complaints and only mild back pain requesting Tylenol only for pain control Physical Exam Physical Exam: Patient has a SUAD drain in place with serosanguineous drainage Card exam is regular lungs are clear Neurologically her lower extremities are with intact strength and sensation grossly Results & Data Results & Data Vital Signs (Past 12 Hours) Vital Signs Temp Pulse Resp BP Pulse Ox O2 Del Method 04/19/24 03:09 97.5 F L 54 L 17 164/79 H 95 Room Air 04/19/24 00:45 Room Air 04/18/24 23:09 97.5 F L 52 L 16 155/83 H 95 Room Air Laboratory Results Reviewed CBC monitoring acute blood loss anemia postoperatively not in need of transfusion Reviewed chemistry PG Care Time/CCT Total # of Minutes Spent Total Time Spent with Patient: Total time spent is greater than 50% in coordination of care (as documented) at patient's floor/unit and/or counseling patient: Coding Level of Care Code 95648 SUB INP/OBS CARE 2/35MIN Diagnoses Neurogenic claudication due to lumbar spinal stenosis M48.062 HTN (hypertension) I10 Vitamin B12 deficiency E53.8
[2024-04-19 07:56] LABS: Basophils # (auto) 0.02 K/uL (0.00-0.20); Basophils % (auto) 0.2 %; Eosinophils # (auto) 0.01 K/uL (0.00-0.50); Eosinophils % (auto) 0.1 %; Hematocrit (blood only) 31.2 % (37.0-47.0); Hemoglobin 10.6 g/dl (12.0-16.0); Immature Granulocytes # (auto) 0.04 K/uL (0.01-0.20); Immature Granulocytes % (auto) 0.4 %; Lymphocytes # (auto) 1.61 K/uL (1.20-3.40); Lymphocytes % (auto) 15.8 %; Mean Corpuscular Hemoglobin 32.5 pg (25.0-34.0); Mean Corpuscular Volume 95.7 fL (80.0-100.0); Mean Platelet Volume 10.9 fL (9.4-12.4); Monocytes # (auto) 0.56 K/uL (0.11-0.59); Monocytes % (auto) 5.5 %; Neutrophils # (auto) 7.93 K/uL (1.40-6.50); Platelet Count 214 K/uL (130-400); RDW Coefficient of Variation 12.2 % (11.5-14.5); Red Blood Count 3.26 M/uL (4.20-5.40); White Blood Count 10.17 K/ul (4.8-10.8)
[2024-04-19 08:29] LABS: BUN Creatinine Ratio 19.7 (10-20); Calcium 8.9 mg/dl (8.6-10.3); Creatinine Clr Calc Pharmacy 52.4 ml/min; Est GFR (African American) 87.7 ml/min; Est GFR (Non-African American) 75.7 ml/min; Potassium 4.2 mmol/L (3.5-5.1)
[2024-04-19] MEDS ORDERED: ENALAPRIL MALEATE 10 MG TAB PO SCH (09:00)
--- NOTE | 2024-04-19 09:33 | Orthopedic Progress Note ---
Date of Service April 19, 2024 Assessment & Plan (1) Neurogenic claudication due to lumbar spinal stenosis: Plan: Anitha is postoperative day 1 status post hard removal L4-5, decompression L3-4 with instrumented fusion L3-L5. She is doing well. Will start physical therapy today. Continue with pain control. Maintain SUAD drain. DVT prophylaxis is in the form teds and SCDs. Continue with aggressive bowel regimen. Anticipate discharge within the next couple of days Admission and Anticipated Discharge Date Admission Date: April 18, 2024 Subjective Anitha is postoperative day 1 status post hardware removal L4-5, decompression L3- 4 with instrumented fusion L3-4, L4-5. She had an uneventful evening. Radicular leg pain improved. Back pain is controlled. SUAD drain output last shift was 120 cc. Review of Systems Review of Systems: All systems reviewed & are unremarkable except as noted in HPI & below Physical Exam Physical Exam: Alert and oriented x 3 Sitting up in bed in no acute distress Lumbar dressing is clean dry intact with functioning SUAD drain Strength intact bilateral lower extremities Teds and SCDs intact bilateral lower extremities Results & Data Vital Signs (Past 12 Hours) Vital Signs Temp Pulse Resp BP Pulse Ox O2 Del Method 04/19/24 08:25 36.3 C L 58 L 16 147/72 H 99 Room Air 04/19/24 03:09 36.4 C L 54 L 17 164/79 H 95 Room Air 04/19/24 00:45 Room Air 04/18/24 23:09 36.4 C L 52 L 16 155/83 H 95 Room Air
[2024-04-19] MEDS: ESTRADIOL 0.05 MG/24HRS TDSY TD SCH (10:04)
[2024-04-19] MEDS: PANTOprazole 40 MG TAB PO SCH (10:05)
[2024-04-19] MEDS: CYANOCOBALAMIN (B-12) 500 MCG TABLET PO SCH (10:05)
[2024-04-19] MEDS: dexAMETHasone 6 MG in SYRINGE 0 ML IV SCH (10:06)
[2024-04-19] MEDS ORDERED: Nursing to Pharmacy Communication SCH (11:15)
[2024-04-19] MEDS: CHOLESTYRAMINE LIGHT 4 GM PKT PO SCH (11:36)
[2024-04-19] MEDS: RAMIPRIL PO SCH (16:56)
[2024-04-20 03:09] VITALS: TEMP 97.9; O2SAT 97
--- NOTE | 2024-04-20 08:18 | Discharge Summary ---
Date of Service April 20, 2024 Admission HPI Per Admitting Provider This is a 78-year-old female presents with chronic persistent back and bilateral leg pain after failing course of nonoperative care she is here for surgical invention. Principal Diagnosis Lumbar spinal stenosis with neurogenic claudication Discharge Data Allergies Allergy/AdvReac Type Severity Reaction Status Date / Time adhesive Allergy Severe Redness & Verified 04/18/24 11:24 skin irritation oxycodone Allergy Severe "out of Verified 04/18/24 11:24 body experience" doxycycline Allergy Intermediate Rash Verified 04/18/24 11:24 niacin Allergy Intermediate Redness Verified 04/18/24 11:24 ciprofloxacin Allergy Unknown Unknown Verified 04/18/24 11:24 red yeast rice Allergy Unknown Unknown Verified 04/18/24 11:24 sulfamethizole Allergy Unknown Unknown Verified 04/18/24 11:24 ezetimibe [From Zetia] AdvReac Intermediate Muscle Pain Verified 04/18/24 11:24 atorvastatin AdvReac Mild Muscle Pain Verified 04/18/24 11:24 choline fenofibrate AdvReac Mild Muscle Pain Verified 04/18/24 11:24 [From Trilipix] fenofibrate [From Tricor] AdvReac Mild Muscle Pain Verified 04/18/24 11:24 gemfibrozil [From Lopid] AdvReac Mild Muscle Pain Verified 04/18/24 11:24 pitavastatin [From Livalo] AdvReac Mild Muscle Pain Verified 04/18/24 11:24 pravastatin [From Pravachol] AdvReac Mild Muscle Pain Verified 04/18/24 11:24 rosuvastatin [From Crestor] AdvReac Mild Muscle Pain Verified 04/18/24 11:24 simvastatin AdvReac Mild Muscle Pain Verified 04/18/24 11:24 Consultations 04/18/24 16:08 Consult Hospitalist Routine Procedures Performed Operation Date: 04/18/24 12:15 Actual Procedures p L3-L4 Decompression and Fusion, Hardware Removal L4-L5, Spinal Cord Monitoring(Not Applicable) - Kevin Cardona DO Ordered Studies 04/18/24 07:00 [place] lumbar spine 2-3V Routine Hospital Course (1) Neurogenic claudication due to lumbar spinal stenosis: Patient 1 lumbar decompression fusion tolerated this well was taken to orthopedic for postoperative. Postop patient progressed appropriately. SUAD drain decreasing bili. Excellent strength testing. Pain well-controlled. Subsequent discharge home. Discharge orders and instructions can be found in chart for further review. Total Time Total Time Spent Total Time Spent (In Minutes): 20 minutes Discharge Plan Discharge Items Patient Disposition: Home - Self-Care Reason For Visit: Lumbar Region Spinal Stenosis with Neurogenic Adelia Discharge Diagnosis: Lumbar spinal stenosis with neurogenic claudication Activity: As commented below Non-emergency contact: Primary Care Provider Call non-emergency contact if: you have any medication questions Follow-up/Referrals: Cristela Camarillo MD [Primary Care Provider] - Diet: Regular Addtl Attending Provider Instructions: ACTIVITY RECOMMENDATIONS: SELF CARE INSTRUCTIONS AFTER THORACIC/LUMBAR FUSIONS 1. You may walk to your tolerance. It is good exercise for your legs and back. Expect some back and intermittent leg aches and pains. 2. You may perform "counter-top" level activities (make a sandwich, andrea with a project, etc.). 3. No bending or lifting of more than 10 pounds or back twisting of any nature (roll like a log when turning in bed). 4. You may ride in a car for 20-30 minutes at a time. No driving until after your first visit with your doctor. 5. Frequent changes of position and restricting sitting to 30 minutes at a time will help limit the amount of back spasms and stiffness you may experience. 6. You may discontinue the use of ambulatory aids (cane, crutches, etc.) once your strength and confidence allow. 7. You may spring coiler the shower and let water strike your incision when you arrive home at least once daily. Do not take a tub bath, sit in a hot tub or go into a swimming pool until after your first recheck in the office. SPECIAL CARE INSTRUCTIONS: VERY IMPORTANT TO READ AND REVIEW A. Your surgical incision has been closed with a cosmetic suture under the skin that will dissolve in about 6 weeks. In 14 days, you can use a pair of clean scissors and cut the suture that is left outside of the skin at the ends of your incision. 1. The small skin tapes can be removed 7 days after surgery if they have not fallen off by that point. 2. You may keep the wound open to air as much as possible to promote healing after post-op day number 5 unless told otherwise by your doctor. 3. If you think the wound looks like it is becoming infected (redness or worsening drainage) and/or you are experiencing fever, chill or worsening back pain and muscle spasms, contact the office so that we may evaluate you as soon as possible. B. Complications are uncommon, but please contact us if you have any signs or symptoms of: 1. wound infection (fever higher than 102.5 degrees F, redness, separation of wound, drainage, or increasing pain from the incision) 2. blood clots in legs (pain, swelling, redness and warmth in legs) 3. urinary tract infection (fever higher than 102.5 degrees F, burning upon urination or increased frequency of urination) 4. nerve problems (inability to walk on your toes or heels, numbness, loss of bowel or bladder control) 5. any other symptoms that concern you C. Please call the office at if you have any concerns or questions about your operation or recovery. D. No smoking! Smoking drastically decreases the chance of a solid fusion. E. Do not take any anti-inflammatory medications (Indocin, Advil, Motrin, Aspirin, Naprosyn, etc.) as these may inhibit the chance of a solid fusion. Tylenol is okay to take for pain. MANAGING PAIN AFTER SPINAL SURGERY 1. Narcotic medication is intended for short-term use and will be provided for surgical pain. Surgical pain usually lasts for a period of 4-6 weeks. Narcotic medication includes Percocet, Vicodin, Darvocet, Tylenol #3 or Lortab. 2. Longer-term pain is more appropriately treated with non-narcotic medication such as Tylenol ES. 3. Muscle spasm is not appropriately treated with narcotics. Muscle relaxers such as Soma, Flexeril or Skelaxin can be used along with Tylenol ES. 4. Remember that we all live with some "aches and pains". This is not unusual or uncommon after an injury or as we get older. a. Back pain is expected and may include muscle spasms for 4 to 6 weeks after surgery. The pain should gradually improve. If the pain worsens for no apparent reason, please contact the office. b. Intermittent leg pain may also be experienced and should not be concerned about unless it worsens for no apparent reason. If so, please contact the office. 5. We will provide appropriate medication within the normal guidelines of their prescribed use. We will also be very cautious and aware of potential abuse and extended duration of patients' medication needs. a. Pain medications are for your comfort and to assist with sleep and rest so that the tissue can heal. They are not provided in order to return to normal activity and should not be used through the day. To do so or worsening pain at night can result from ongoing tissue damage and development of tolerance to the prescribed medicine. 6. Please allow 2-3 days to process refills. Prescriptions will not be mailed but must be picked up at the office. FOLLOW UP VISIT: Keep your scheduled follow-up appointment. Any questions, please call the office at . Pending Studies at Discharge: No Stand-Alone Forms: [facility] [place], Smoking Cessation Medications and DC Order Prescriptions: New tramadol 50 mg tablet 50 mg PO Q6H PRN (Reason: pain, moderate) Qty: 30 0RF Continued omeprazole 40 mg capsule,delayed release(DR/EC) 40 mg PO QAM Qty: 90 1RF Cholestyramine Light 4 gram powder 4 g PO DAILY Qty: 718.2 1RF Rx Instructions: administer w/meal; avoid other meds within 1hr before or 4-6hr after dose phenazopyridine [Pyridium] 100 mg tablet 100 mg PO TID PRN (Reason: pain) Qty: 20 0RF Rx Instructions: Take 1 tablet as needed for bladder irritation every 8-12 hours lorazepam 0.5 mg tablet 0.5 mg PO DAILY PRN (Reason: Anxiety) Qty: 30 0RF hydrocortisone 1 % cream 1 applic topical BID PRN (Reason: skin irritation) Qty: 28.35 0RF mupirocin 2 % ointment 1 applic topical BID PRN (Reason: skin irritation) Qty: 15 0RF estradiol 0.05 mg/24 hr patch weekly 1 patch TD WEEKLY cranberry extract 500 mg tablet 500 mg PO BID omega-3 fatty acids capsule 1,200 mg PO QAM cholecalciferol (vitamin D3) 2,000 unit capsule 2,000 units PO BID spironolacton-hydrochlorothiaz 25-25 mg tablet 1 tab PO DAILY PRN (Reason: Fluid Retention) coenzyme Q10 [CoQ-10] 100 mg Capsule 100 mg PO HS polyethylene glycol 3350 [Miralax] 17 gram/dose Powder 17 g PO HS ramipril 2.5 mg capsule 2.5 mg PO QAM cyanocobalamin (vitamin B-12) 1,000 mcg capsule 1,000 mcg PO QAM Discharge Orders: Discharge Order (Routine); Ordered 04/20/24 Ordered By: Kevin Cardona Admission Data Admit Date/Time: 04/18/24 14:18 Attending Provider: Kevin Cardona Admit Provider: Kevin Cardona Primary Care Provider: Cristela Camarillo Other Providers: Darron Medina
[2024-04-20 08:40] VITALS: PULSE 59; RESP 18
[2024-04-20] MEDS ORDERED: ENALAPRIL MALEATE 10 MG TAB PO SCH (09:00)
[2024-04-20] MEDS ORDERED: RAMIPRIL 2.5 MG PO SCH (09:00)
[2024-04-20] MEDS ORDERED: SPIRONOLACTONE/HCTZ 25-25 PO PRN ×2 (09:00→16:08)
[2024-04-20 14:27] VITALS: BP 150/70
== END 2024-04-20 15:43 | disposition home or self-care (01) | DRG 455 ==
LOC: ASU 10:47 → 3W 14:18
DX: E78.5 Hyperlipidemia, unspecified; Z88.5 Allergy status to narcotic agent; E53.8 Deficiency of other specified B group vitamins; M19.90 Unspecified osteoarthritis, unspecified site; Z88.8 Allergy status to other drugs, medicaments and biological substances; M48.062 Spinal stenosis, lumbar region with neurogenic claudication; F17.210 Nicotine dependence, cigarettes, uncomplicated; I10 Essential (primary) hypertension; F41.9 Anxiety disorder, unspecified; Z79.899 Other long term (current) drug therapy; K21.9 Gastro-esophageal reflux disease without esophagitis